=== PATIENT | female | born 1955 | race Caucasian/White ===

== ENCOUNTER 2016-05-06 15:26 | Inpatient (IN) | payer BC, OTHER ==
[~2016-05-06] VITALS: Ht 154.9 cm; Wt 55.1 kg
[2016-05-06] MEDS ORDERED: ONDANSETRON INJ 2 MG/ML 2 ML VIAL IV PRN (16:00)
[2016-05-06 16:10] VITALS: BP 213/113; PULSE 71; TEMP 36.7; O2SAT 98; BMI 21.5
[2016-05-06] MEDS ORDERED: PATIENT'S ALLERGY INFO NEEDS ENTERED SCH (16:30)
[2016-05-06] MEDS ORDERED: CALC667C4 PO (16:34)
[2016-05-06] MEDS ORDERED: MULTTAB58 PO (16:34)
[2016-05-06] MEDS ORDERED: INSDGI SC (16:34)
[2016-05-06] MEDS ORDERED: INSPMPRGR (16:34)
[2016-05-06] MEDS ORDERED: NRV5 PO (16:34)
[2016-05-06] MEDS ORDERED: CHOL20007 PO (16:34)
[2016-05-06] MEDS ORDERED: GLUCAGON FOR INJ 1 MG VIAL SQ PRN (16:45)
[2016-05-06] MEDS ORDERED: GLUCOSE 10 TABS/TUBE PO PRN (16:45)
[2016-05-06] MEDS ORDERED: DEXTROSE 50% 50 ML SYR IV PRN (16:45)
[2016-05-06] MEDS ORDERED: GLUCOSE 40% GEL 15 GM TUBE PO PRN (16:45)
[2016-05-06 17:18] LABS: HEMATOCRIT 38.2 % (37-47); MEAN CELL VOLUME 92.7 fL (80-100); MEAN CORPUSCULAR HEMOGLOBIN 31.1 pg (25-34); MEAN CORPUSCULAR HGB CONC 33.5 g/dl (32-36); MEAN PLATELET VOLUME 9.7 fL (7.4-10.4); PLATELET COUNT 361 K/uL (130-400); RED BLOOD COUNT 4.12 M/uL (4.2-5.4); WHITE BLOOD COUNT 12.44 K/uL (4.8-10.8)
[2016-05-06] MEDS ORDERED: PHARMACY GLYCEMIC MGMT CONSULT PRN (17:27)
[2016-05-06 17:54] LABS: BUN/CREATININE RATIO 3.1 (10-20); CALCIUM 8.6 mg/dl (8.5-10.1); CREATININE 3.5 mg/dl (0.60-1.20); POTASSIUM 3.6 mmol/L (3.5-5.1)
--- NOTE | 2016-05-06 18:02 | History and Physical ---
History & Physical Date & Time of Service: May 06, 2016 at 17:42 Chief Complaint: High Blood Pressure Primary Care Physician: Parris Dyson PA-C History of Present Illness 61 year old female referred for direct admission by Dr. Meade for uncontrolled hypertension. She has ESRD and is on HD. Per Dr. Meade, patient's blood pressures have been running in the 200s systolically. Patient reports she has had high blood pressure for several years. Last year however she was taken off Lisinopril that she had been on several years. BPs started to increase over the past couple of months. Patient has been trialed on lisinopril, atenolol, and amlodipine. She reports that since taking these medicines she has felt poorly and her vision has been blurry at times. She reports the vision is worst in the morning. She also has been having right sided headaches. She denies lightheadedness, dizziness, diaphoresis, or syncopal events. No chest pain or shortness of breath. She denies abdominal pain. She had vomiting a couple of weeks ago which she attributes to a sinus infection she had. She also reports intermittent episodes of diarrhea. She denies fever and chills. Patient continues to make urine; she denies dysuria. At the time of my exam, patient is sitting on the side of the bed, no acute distress. BP is 213/113. Past Medical/Surgical History Medical Problems: (1) DM type 2 (diabetes mellitus, type 2) Status: Chronic (2) ESRD (end stage renal disease) on dialysis Status: Chronic (3) HTN (hypertension) Status: Chronic Social History Smoking Status: Never Smoker Alcohol Use: none Immunizations History of Pneumococcal: Yes Pneumococcal Date: August 24, 2015 Allergies Coded Allergies: Atorvastatin (Verified Adverse Reaction, Mild, GI SYMPTOMS, 05/06/16) Niacin (Verified Adverse Reaction, Mild, GI SYMPTOMS, 05/06/16) Home Medications Scheduled Amlodipine Besylate (Amlodipine Besylate), 5 MG PO DAILY Calcium Acetate (Phoslo 667 Mg), 1 CAP PO WM Cholecalciferol (Vitamin D3), 1 TAB PO DAILY Insulin Glargine (Lantus), 11 UNITS SC QPM Insulin Human Regular (Humulin R), TID Multiple Vitamin (Multivitamin), 1 TAB PO DAILY Review of Systems 10 point review of systems was completed with the pertinent positives and negatives noted per the HPI Physical Exam Vital Signs Date Time Temp Pulse Resp B/P Pulse Ox O2 Delivery O2 Flow Rate FiO2 05/06/16 16:10 36.7 71 17 213/113 98 Room Air General Appearance: no apparent distress Head: normocephalic Eyes: normal inspection, PERRL, EOMI ENT: hearing grossly normal Neck: supple, no JVD Respiratory/Chest: lungs clear, normal breath sounds, no respiratory distress, + pertinent finding (dialysis catheter in place to left chest) Cardiovascular: regular rate, rhythm, no edema, normal peripheral pulses Abdomen/GI: normal bowel sounds, non tender, soft Extremities/Musculoskelatal: normal inspection, no calf tenderness Neurologic/Psych: no motor/sensory deficits, alert, normal mood/affect, oriented x 3 Skin: normal color, warm/dry Diagnostics Laboratory Results Results Past 24 Hours Test 05/06/16 16:05 05/06/16 17:05 Range/Units Bedside Glucose 112 70-90 mg/dl White Blood Count 12.44 4.8-10.8 K/uL Red Blood Count 4.12 4.2-5.4 M/uL Hemoglobin 12.8 12.0-16.0 g/dL Hematocrit 38.2 37-47 % Mean Corpuscular Volume 92.7 80-100 fL Mean Corpuscular Hemoglobin 31.1 25-34 pg Mean Corpuscular Hemoglobin Concent 33.5 32-36 g/dl RDW Standard Deviation 58.2 36.4-46.3 fL RDW Coefficient of Variation 17.2 11.5-14.5 % Platelet Count 361 130-400 K/uL Mean Platelet Volume 9.7 7.4-10.4 fL Impression Assessment and Plan UNCONTROLLED HTN - direct admit to tele, referred by Dr. Meade - due to vision disturbances and headache, will obtain MRI/MRA brain - discussed case with Dr. Meade - will try amlodipine 5mg q12h and Lisinopril 20mg q12h with all doses spaced apart to prevent sudden drop in BP as patient is very symptomatic when BP is lowered - consider secondary causes of HTN - Dr. Meade reports he will order any testing that has not been completed in the past - goal SBP ~ 160-180 - will use PRN PO hydralazine for SBP > 200 - consider anxiety contributing to high BPs, will start BuSpar and consult mental health ESRD ON HD - HD MWF - management as per nephro DVT PROPHYLAXIS - SCDs until BP better controlled DISPO - In my clinical judgment this beneficiary meets acute admission criteria, established by [facility], that includes being hospitalized through two midnights. Advanced Directives Existing Advance Directive: No Existing Living Will: No Existing Power of Deep Fat Fry Cook: No VTE Prophylaxis VTE Risk Assessment Done? Y/N: Yes Risk Level: Moderate
[2016-05-06] MEDS: LISINOPRIL 20 MG TAB PO SCH (18:05)
[2016-05-06] MEDS: CALCIUM ACETATE 667MG GELCAP PO SCH (18:06)
--- NOTE | 2016-05-06 18:44 | NEPHROLOGY CONSULTATION ---
DATE OF CONSULTATION: 05/06/2016 ATTENDING OF RECORD: Dr. Ludwig. REASON FOR CONSULTATION: ESRD and hypertensive urgency. HISTORY OF PRESENT ILLNESS: This is a 61-year-old female who dialyzes at the [facility] Mondays, Wednesdays, and Fridays with ESRD secondary to diabetes, hypertension and NSAID abuse. The patient has been diabetic since 2003. No smoking. Does have a history of scoliosis with chronic back pain and has taken NSAIDs for her back pain in the past. The patient also does have a history of polycythemia vera where she required bloodletting in 2013. The patient has been on atenolol in the past with no issues, was on lisinopril low dose for quite some time; however, recently over the past several months, her blood pressures have worsened with systolics consistently above 200s, currently on atenolol 25 mg a day in the morning, lisinopril 40 mg in the middle of the day and recently started taking Norvasc initially 2.5 mg a day at night and then titrated up to 5 mg a day. The patient was noted to have a temporary vision loss with the atenolol recently, so stopped taking the atenolol and was just taking the lisinopril 40 mg a day and Norvasc 5 mg a day; however, was also noting transient blurry vision with the lisinopril as well and so only took Norvasc 5 mg this morning, took Norvasc 5 mg last night, and nothing throughout yesterday up until last night. Has been having worsening headaches for the past week and went to the Emergency Room in [place] last Friday and was discharged at that time and not admitted. The patient does have significant anxiety as well and has been known to stop blood pressure medications secondary to side effects. PAST MEDICAL HISTORY: Anxiety, hypertension, diabetes, end-stage renal disease, polycythemia. PAST SURGICAL HISTORY: Fistula placement, tunnel dialysis catheter placement, fistula eventually clotted. FAMILY HISTORY: No kidney disease in family. SOCIAL HISTORY: . No smoking, very occasional alcohol, no drugs. REVIEW OF SYSTEMS: No change in weight. No fatigue. Positive headaches. No shortness of breath, no chest pain, no edema, no nausea, vomiting. No diarrhea. Does have chronic back arthritis. No nocturia. No tremors. No seizures. No rash or itching. All other review of systems otherwise negative. HOME MEDICATIONS: Significant for Norvasc 5 mg at night, lisinopril 40 mg a day, atenolol 25 mg in the morning which she is no longer. CURRENT MEDICATIONS: Norvasc 5 mg p.o. q. 12, multivitamin daily, vitamin D daily, Lantus 11 units subQ at night, PhosLo 1 p.o. t.i.d. with meals, lisinopril 20 mg p.o. q. 12 hours, hydralazine 10 mg p.o. p.r.n. PHYSICAL EXAMINATION: VITAL SIGNS: Blood pressure 213/113, temperature 36.7, pulse 71, respiratory rate 17, pulse ox 98% on room air. GENERAL: Awake, alert, oriented x3. EYES: No scleral icterus. ENT: Moist mucous membranes. NECK: Supple. PULMONARY: Clear to auscultation. CARDIAC: Regular rate and rhythm. ABDOMEN: Bowel sounds positive, soft, nontender, nondistended. EXTREMITIES: No significant clubbing, cyanosis or edema. NEUROLOGIC: Nonfocal. DERMATOLOGIC: No rash or ulcers noted. LABORATORIES: Pending. ASSESSMENT AND PLAN: 1. End-stage renal disease: The patient did dialyze today. Mondays, Wednesdays, and Fridays are her normal days. Pt did have her complete dialysis treatment today. Unfortunately, unable to tolerate fluid removal, cramps rather easily, so despite the fact that the patient has elevated blood pressures, unable to lower dry weight to help with the blood pressure. 2. Hypertensive urgency: Blood pressures have consistently been in the 200s now for the past 2 months, and is now having headaches for the past week with blurriness in vision/transient vision loss when we lower the blood pressure. I spoke to the primary admitting who is checking an MRI and if abnormal, will consult neurology, otherwise will have ophthalmology evaluate as an outpatient. Question if the patient's blood pressures are significantly elevated enough to cause papilledema, but now as we lowered the blood pressure may be transiently affecting the vision. The patient is quite sensitive to blood pressure medications and the side effects and patient has been hesitant to be aggressive with blood pressure medications secondary to the lowering of blood pressure causing her to not feel well. Encouraged her to at least get the systolic blood pressures at a goal of 170s-180s and so we will try to space out the lisinopril and the Norvasc and just give 10 mg of p.o. hydralazine as needed for systolic blood pressures greater than 200. We will do a Norvasc 5 b.i.d. for now and lisinopril 20 b.i.d. and try to space out the Norvasc and lisinopril safely apart so that there is no significant drop transiently and we will likely slowly add hydralazine in addition to the lisinopril and Norvasc; however, I do not want to drop the blood pressure too quickly. The patient also does have significant anxiety component as well and we would add BuSpar to help with anxiety symptoms. If we can control her anxiety better, she may be able to tolerate the sensation of lowering the blood pressure, so that we can get the blood pressure into a safe range which should be a systolics 160s-180s. I would also like to check a vascular Dopplers and carotid Dopplers to assess that there is adequate blood flow with the carotids and/or if there is any significant narrowing of blood flow to the kidneys. Also, check an aldosterone-renin ratio. I would expect in setting of lisinopril that the aldosterone level should not necessarily be elevated. If it is elevated, I may consider other secondary causes to why the blood pressure has acutely worsened. I appreciate consultation. WANDER
[2016-05-06 19:03] VITALS: BP 218/102; PULSE 73; TEMP 37; O2SAT 93
[2016-05-06 19:24] VITALS: BP 204/97; PULSE 72; TEMP 36.9; O2SAT 91
[2016-05-06] MEDS: HydrALAZINE 10 MG TAB PO PRN (19:32)
[2016-05-06] MEDS: ACETAMINOPHEN 325 MG TAB PO PRN (19:40)
[2016-05-06 20:53] VITALS: BP 218/93
[2016-05-06] MEDS: INSULIN ASPART 100 UNITS/ML 3 ML PEN SC SCH (21:00)
--- NOTE | 2016-05-06 22:05 | DIAGNOSTIC IMAGING REPORT ---
MR ANGIOGRAM OF THE BRAIN CLINICAL HISTORY: Hypertension. Visual changes. COMPARISON STUDY: MRI of the brain performed concurrently on 05/06/2016. TECHNIQUE: 3-D [id number] MR angiography of the intracranial circulation is performed. 3-D tumble views are created and assessed. IV contrast was not administered for this examination. The examination is modestly degraded by motion artifact. FINDINGS: The [place] of [place] is developmentally complete. The internal carotid arteries are widely patent bilaterally, as are the anterior and middle cerebral arteries. The vertebrobasilar system and posterior cerebral arteries are widely patent. The left vertebral artery is dominant. There is no aneurysm, high-grade stenosis, or focal vessel cutoff seen throughout the intracranial circulation. The brain parenchyma is normal as visualized. IMPRESSION: Unremarkable MR angiogram of the brain noting a mildly motion degraded examination. Electronically signed by: David Escalante M.D. 05/06/2016 10:03 PM Dictated Date/Time: 05/06/2016 10:01 PM
--- NOTE | 2016-05-06 22:15 | DIAGNOSTIC IMAGING REPORT ---
MRI OF THE BRAIN WITHOUT IV CONTRAST CLINICAL HISTORY: Hypertension. Visual changes. COMPARISON STUDY: No priors. TECHNIQUE: MRI of the brain was performed utilizing various T1 and T2-weighted sequences in the axial, sagittal, and coronal planes. IV contrast was not administered for this examination. The examination is incomplete, as the patient declined to finish the study. There are no axial T1 and coronal FLAIR sequences. FINDINGS: Brain parenchyma: There are age-related involutional changes noting mild patchy subcortical and periventricular microtraumatic hepatic disease. There is no hemorrhage or mass effect. There is no restricted diffusion to suggest acute ischemia. Mix-white matter differentiation is preserved. No extra-axial fluid collection is seen. The cerebellar tonsils are normal in configuration. Ventricles, sulci, and cisterns: Prominent secondary to involutional change. Pituitary and sella: Unremarkable. Intracranial vasculature: Normal flow voids are maintained at the skull base. Orbits: The bony orbits are grossly intact. Orbital contents are normal in appearance. Sinuses and mastoids: Clear. Calvarium: Unremarkable. Cervical cord: Partially visualized cervical spinal cord is normal in morphology and signal intensity. IMPRESSION: No acute intracranial abnormality is identified noting an incomplete examination. The patient declined to finish the study. Electronically signed by: David Escalante M.D. 05/06/2016 10:13 PM Dictated Date/Time: 05/06/2016 10:09 PM
[2016-05-06] MEDS: AMLODIPINE BESYLATE 5 MG TAB PO SCH (22:20)
--- NOTE | 2016-05-06 22:23 | Pharmacy Progress Note ---
Glycemic Control Intl Consult Date of Service May 06, 2016. Scope Glycemic Pharmacist consulted by Toyin Fernandez on 05/06/16 for glycemic control and to write orders per [facility] inpatient glycemic control protocol Objective Weight (Kilograms): 51.500 Accuchecks BSG (last 24hrs): Test 05/06/16 16:05 05/06/16 17:05 05/06/16 20:24 Bedside Glucose 112 mg/dl (70-90) 169 mg/dl (70-90) Random Glucose 111 mg/dl (70-99) Laboratory Data (last 24hrs) Test 05/06/16 17:05 Anion Gap 10.0 mmol/L BUN/Creatinine Ratio 3.1 Blood Urea Nitrogen 11 mg/dl Creatinine 3.50 mg/dl Potassium Level 3.6 mmol/L Sodium Level 138 mmol/L White Blood Count 12.44 K/uL Recent Pertinent Medications Outpatient Anti-diabetic Regimen: * Lantus 11 units SQ q PM * Sliding scale insulin The patient is currently receiving: * Basal insulin: Lantus 11 units every 24 hours * Correctional Insulin: NovoLog Correction per scale ACHS Goal Range: Low 120 mg/dL - High 160 mg/dL Correction Factor: 85 mg/dL/unit * Prandial insulin: Per carb ratio of 1 unit per 28 grams CHO consumed Risk Factors for Insulin Resistance: * Diet: AHA/T2DM Assessment & Plan ASSESSMENT: * ADA & AACE recommend a goal blood sugar range 140-180 mg/dl for the majority of critically ill & non-critically ill patients. However, more stringent targets may be selected in individual cases. 05/06/16 * 61 y/o type 2 diabetic admitted with hypertension, ESRD * BSG on admission WNL at 112mg/dL * Home regimen includes basal/bolus - continue on admission * slightly decrease basal dose until more data available. * A1c unavailable at time of consult, however will interpret with caution since ESRD can cause variation in value PLAN FOR INPATIENT GLYCEMIC CONTROL: * Lantus 8 units SQ q PM * NovoLog AC and HS * Correction factor: 50mg/dL/unit * Carb ratio: forgo at this time as the patient does not use as an o/p * Goal range: 140-180mg/dL per ADA recommendations * A1c - ordered for 05/07/16 by provider * Please note that the plan above was derived based on current level of insulin resistance and hospital stress. These recommendations are appropriate for inpatient admission only. Plan of care upon discharge will need to be reassessed to avoid potential outpatient hypo/hyperglycemia. Thank you.
--- NOTE | 2016-05-06 22:35 | DIAGNOSTIC IMAGING REPORT ---
ULTRASOUND OF THE CAROTID ARTERIES CLINICAL HISTORY: Amaurosis fugax. COMPARISON STUDY: No priors. TECHNIQUE: Real-time, grayscale, and color Doppler sonography of the carotid arteries is performed. Images are reviewed in the transverse and longitudinal planes. FINDINGS: Blood pressures were not assessed due to limb restrictions. The carotid arteries are patent bilaterally and demonstrate antegrade flow. There is mild to moderate echogenic shadowing atherosclerotic plaque seen in the carotid bulbs bilaterally, right greater than left. Normal doppler arterial waveforms are seen throughout. Velocity measurements are listed below. Common carotid peak systolic velocity (cm/sec): RIGHT: 51 LEFT: 69 ICA proximal peak systolic velocity (cm/sec): RIGHT: 70 LEFT: 76 ICA mid peak systolic velocity (cm/sec): RIGHT: 43 LEFT: 56 ICA distal peak systolic velocity (cm/sec): RIGHT: 43 LEFT: 87 ICA/CC peak systolic ratio: RIGHT: 1.4 LEFT: 1.3 Antegrade flow was shown in the vertebral arteries. The external carotid arteries are patent. IMPRESSION: 1. There is no sonographic evidence of hemodynamically significant stenosis in the right or left carotid arterial system. 2. Antegrade flow is shown in the vertebral arteries. Electronically signed by: David Escalante M.D. 05/06/2016 10:33 PM Dictated Date/Time: 05/06/2016 10:31 PM
[2016-05-06] MEDS: INSULIN GLARGINE SOLOSTAR 100 UNITS/ML 3 ML PEN SC SCH (22:47)
[2016-05-07] VITALS (9 sets, daily range): BP systolic 173–226; BP diastolic 75–112; PULSE 72–80; TEMP 36.8–37.2; O2SAT 91–99; Ht 154.9 cm; Wt 55.1 kg
[2016-05-07] MEDS: HydrALAZINE 10 MG TAB PO PRN (03:36)
[2016-05-07] MEDS: LISINOPRIL 20 MG TAB PO SCH ×2 (05:54→17:05)
--- NOTE | 2016-05-07 06:30 | Nephrology Progress Note ---
Nephrology Progress Note Date of Service: May 07, 2016. Subjective 61 yo female with esrd and hypertensive urgency with systolics in the 200s consistently for the past two months. have been trying to adjust outpt meds but pt was having drug intolerances to the beta blockers-causing temporary blindness. pt this morning has upset stomach but feels she is just hungry. had a headache which improved with tylenol. Objective Date Time Temp Pulse Resp B/P Pulse Ox O2 Delivery O2 Flow Rate FiO2 05/07/16 04:00 Room Air 05/07/16 03:39 37.1 72 18 226/110 93 Room Air 05/07/16 00:06 36.9 76 19 216/112 99 Room Air 05/06/16 23:59 Room Air 05/06/16 20:53 218/93 05/06/16 20:00 Room Air 05/06/16 19:24 36.9 72 18 204/97 91 Room Air 05/06/16 19:03 37.0 73 18 218/102 93 05/06/16 16:10 36.7 71 17 213/113 98 Room Air Physical Exam: General-aaox3 Eyes-no scleral icterus ENT-mmm Neck-supple Lungs-cta Heart-rrr Abdomen-bs+ s/nt/nd Extremities-no c/c/e Neuro-nonfocal Current Inpatient Medications Medications (Trade) Dose Ordered Sig/Lauren Route Start Time Stop Time Status Last Admin Dose Admin Acetaminophen (Tylenol Tab) 650 mg Q4H PRN PO 05/06/16 16:00 06/05/16 15:59 05/06/16 19:40 650 MG Ondansetron HCl (Zofran Inj) 4 mg Q6H PRN IV 05/06/16 16:00 06/05/16 15:59 Lisinopril (Zestril Tab) 20 mg Q12@0600,1800 PO 05/06/16 18:00 06/05/16 17:59 05/07/16 05:54 20 MG Amlodipine Besylate (Norvasc Tab) 5 mg Q12H PO 05/06/16 22:00 06/05/16 21:59 05/06/16 22:20 5 MG Hydralazine HCl (Apresoline Tab) 10 mg Q6H PRN PO 05/06/16 16:30 06/05/16 16:29 05/07/16 03:36 10 MG Calcium Acetate (Phoslo Cap) 667 mg TIDM PO 05/06/16 16:45 06/05/16 16:44 05/06/16 18:06 667 MG Insulin Glargine (Lantus Solostar Pen) 8 unit QPM SC 05/06/16 21:00 06/05/16 20:59 05/06/16 22:47 8 UNIT Multivitamins (Multivitamin Tab) 1 tab DAILY PO 05/07/16 09:00 06/06/16 08:59 Cholecalciferol (Vitamin D Tab) 2,000 inter.unit DAILY PO 05/07/16 09:00 06/06/16 08:59 Insulin Aspart (novoLOG ASPART) SLIDING SCALE If C... ACHS SC 05/06/16 21:00 06/05/16 20:59 Glucose (Glucose 40% Gel) 15-30 GRAMS 15 GRAMS... UD PRN PO 05/06/16 16:45 06/05/16 16:44 Glucose (Glucose Chew Tab) 4-8 Tablets 4 Tabl... UD PRN PO 05/06/16 16:45 06/05/16 16:44 Dextrose (Dextrose 50% 50ML Syringe) 25-50ML OF 50% DW IV FOR... UD PRN IV 05/06/16 16:45 06/05/16 16:44 Glucagon (Glucagon Inj) 1 mg UD PRN SQ 05/06/16 16:45 06/05/16 16:44 Miscellaneous Information (Consult Glycemic Management Pharmacy) 1 ea UD PRN N/A 05/06/16 17:27 06/05/16 17:26 Buspirone HCl (Buspar Tab) 5 mg TID PO 05/06/16 17:00 06/05/16 16:59 05/06/16 22:20 5 MG Last 24 Hours Test 05/06/16 16:05 05/06/16 17:05 05/06/16 20:24 05/07/16 04:44 Bedside Glucose 112 mg/dl 169 mg/dl White Blood Count 12.44 K/uL Red Blood Count 4.12 M/uL Hemoglobin 12.8 g/dL Hematocrit 38.2 % Mean Corpuscular Volume 92.7 fL Mean Corpuscular Hemoglobin 31.1 pg Mean Corpuscular Hemoglobin Concent 33.5 g/dl RDW Standard Deviation 58.2 fL RDW Coefficient of Variation 17.2 % Platelet Count 361 K/uL Mean Platelet Volume 9.7 fL Sodium Level 138 mmol/L Potassium Level 3.6 mmol/L Chloride Level 100 mmol/L Carbon Dioxide Level 28 mmol/L Anion Gap 10.0 mmol/L Blood Urea Nitrogen 11 mg/dl Creatinine 3.50 mg/dl Est Creatinine Clear Calc Drug Dose 12.7 ml/min Estimated GFR () 15.5 Estimated GFR (Non- 13.4 BUN/Creatinine Ratio 3.1 Random Glucose 111 mg/dl Calcium Level 8.6 mg/dl Assessment & Plan hypertension-goal systolic bp in the 160 to 180. has continued in the 200s since admission. have been trying to slowly bring it down since pt does not tolerate aggressive lowering. currently on lisinopril 20 bid and norvasc 5 bid. did get dose of lisinopril 10 po for elevated bp. would like to add hydralazine 25 mg po tid to the regimen and increase the hydralazine to 10mg iv q6hrs prn systolic bp above 200. have asked cardiology for help and guidance in this complicated patient. carotid dopplers are normal. mri/mra is good although incomplete study. had renal vascular dopplers this morning-results pending. ordered prasanna/renin to complete the workup. will check tsh as well. psych-pt also with anxiety component to her bp. have consulted psych and added buspar 5 po tid. perhaps if anxiety levels improve, she may be able to tolerate bp meds better. ESRD-does not tolerate aggressive uf-cramps. so unable to help lower bp with lowering dry weight.
[2016-05-07] MEDS: INSULIN ASPART 100 UNITS/ML 3 ML PEN SC SCH ×4 (07:00→20:44)
[2016-05-07 07:06] LABS: BASO % 0.3 %; BASO ABS # 0.03 K/uL (0-0.2); COMPLETE YES; EOS % 3.1 %; HEMATOCRIT 38.3 % (37-47); IG% 0.3 %; LYMPH % 9.3 %; LYMPH ABS # 1.07 K/uL (1.2-3.4); MEAN CELL VOLUME 92.5 fL (80-100); MEAN CORPUSCULAR HEMOGLOBIN 30.4 pg (25-34); MEAN CORPUSCULAR HGB CONC 32.9 g/dl (32-36); MEAN PLATELET VOLUME 9.9 fL (7.4-10.4); MONO % 5.1 %; NEUT % 81.9 %; PLATELET COUNT 354 K/uL (130-400); RED BLOOD COUNT 4.14 M/uL (4.2-5.4); WHITE BLOOD COUNT 11.53 K/uL (4.8-10.8)
--- NOTE | 2016-05-07 07:17 | DIAGNOSTIC IMAGING REPORT ---
DUPLEX RENAL ARTERY ultrasound CLINICAL HISTORY: check for renal artery stenosis. Hypertension. COMPARISON STUDY: None. FINDINGS: Both kidneys are echogenic and atrophic with the right measuring 8.8 cm and the left measuring 9.0 cm. Mild fullness within the left renal pelvis without maría hydronephrosis. No right-sided hydronephrosis. There appear to be 2 right renal arteries. The peak systolic velocity of artery 1 measures 75 cm second and the peak systolic velocity of the second artery measures 119 cm/s. The peak systolic velocity within the left renal artery was 48 cm/s. Resistive indices of the bilateral arcuate arteries were less than 0.72. Bilateral renal veins are patent. The spleen is enlarged measuring 15.5 cm in length. There are bilateral pleural effusions. IMPRESSION: 1. No evidence for renal artery stenosis. 2. Splenomegaly. 3. Bilateral pleural effusions. 4. Echogenic and atrophic kidneys. 5. Mild fullness within the left renal collecting system without maría hydronephrosis. Electronically signed by: Jefferson Flores M.D. 05/07/2016 7:15 AM Dictated Date/Time: 05/07/2016 7:11 AM
[2016-05-07] MEDS: HydrALAZINE HCL 20 MG/ML VIAL IV. PRN (07:37)
[2016-05-07 07:47] LABS: BUN/CREATININE RATIO 3.7 (10-20); CALCIUM 9.2 mg/dl (8.5-10.1); CREATININE 4.9 mg/dl (0.60-1.20); POTASSIUM 3.7 mmol/L (3.5-5.1)
[2016-05-07] MEDS: CALCIUM ACETATE 667MG GELCAP PO SCH ×3 (08:28→17:04)
[2016-05-07] MEDS: MULTIVITAMIN TAB PO SCH (08:29)
[2016-05-07] MEDS: CHOLECALCIFEROL 1000 INTER.UNIT TAB PO SCH (08:29)
[2016-05-07 09:52] LABS: ESTIMATED AVERAGE GLUCOSE 85 mg/dl; HA1C FLAG Normal (Normal)
[2016-05-07] MEDS: AMLODIPINE BESYLATE 5 MG TAB PO SCH ×2 (10:51→22:25)
--- NOTE | 2016-05-07 13:13 | Clinical Documentation Query ---
[facility]ICAL DOC[facility] QUERY Patient is a 61 year old female admitted with "uncontrolled hypertension", not otherwise specified. She presented with SBP > 200, visual changes, right sided headaches. She is being treated with oral antihypertensives, anxiolytics, and has been seen in consultation by nephrology. Please clarify as clinically appropriate. Thank you. In your clinical opinion is this patient being managed for: ( X ) Hypertensive urgency ( ) Other explanation of clinical findings (Please Explain) ( ) Unable to determine (Please Define) ( ) Need to Discuss ( ) Not Agree The medical record reflects the following clinical findings, treatment, and risk factors. Clinical Indicators: As above Treatment:She is being treated with oral antihypertensives, anxiolytics, and has been seen in consultation by nephrology. Risk Factors: DM, non-compliance Please clarify and document your clinical opinion in the progress notes and discharge summary. Terms such as "probable", "suspected", "likely", "questionable", "possible", or "still to be ruled out" are acceptable. IF IN AGREEMENT, YOU MUST DOCUMENT ABOVE DIAGNOSTIC STATEMENT IN DAILY PROGRESS NOTES AND DISCHARGE SUMMARY. This document is not part of the patient's record. Thank You, Marcel Ocampo, RANDALL [phone]
--- NOTE | 2016-05-07 14:31 | CONSULTATION REPORT ---
DATE OF CONSULTATION: 05/07/2016 DATE OF CONSULTATION: 05/07/2016. IDENTIFYING DATA: Lesly Allred is a 61-year-old woman from the [place] area, admitted to the medical floor with hypertensive urgency. We are consulted to evaluate anxiety. Information is gathered from the patient and the electronic medical record and determined to be reliable. CHIEF COMPLAINT: "I said that I did not want to go on any medicines." HISTORY OF PRESENT ILLNESS: Lesly Allred is a 61-year-old woman with end-stage renal disease treated by Dr. Meade, uncontrolled hypertension and diabetes, has been struggling to get her hypertension under control for the last several months. She has been on multiple agents but experienced side effects and so is admitted for additional medication support. We have been consulted to evaluate anxiety. The patient admits that she does have anxiety regarding her medical issues. She describes that the nurses at dialysis refer to her shunt as her lifeline and when her shunt failed at some point in the past she became acutely anxious. She presses our conversation by saying she told the nurse earlier and the doctor that she did not want any medications for her anxiety. I then allow her to talk a bit about her medical conditions and her home circumstances. She indicates that her anxiety is better when she is in the hospital because she feels that she has support. Her appetite has been down. Her energy is low. She indicates that her anxiety could be triggered by anything and feels that there is no one specific trigger. Her mood is usually impaired when she does not feel well. She gets about 5 hours of broken sleep per night. She denies current panic attacks. She denies that she was an anxious person when she was in her teens, 20s and 30s. CURRENT MEDICATIONS: 1. Multivite 1 tab daily. 2. Vitamin D supplementation 2000 international units daily. 3. Apresoline 25 mg t.i.d. 4. Hydralazine 10 mg q. 6 p.r.n. 5. Norvasc 5 mg q. 12 hours. 6. Lantus insulin 8 units q.p.m. 7. NovoLog insulin sliding scale. 8. Lisinopril 20 mg q. 12 hours. 9. BuSpar 5 mg t.i.d. 10. PhosLo cap 667 mg t.i.d. with meals. PAST PSYCHIATRIC HISTORY: The patient denies ever having been seen by a mental health professional. She has never been hospitalized for mental health reasons nor has she ever made a suicide attempt. PRIOR MEDICATION TRIALS: None. ACCESS TO GUNS: She is in possession of her father's gun, but does not have ammunition. ALLERGIES: 1. NIACIN -- GI SYMPTOMS. 2. ATORVASTATIN -- GI SYMPTOMS. PAST MEDICAL HISTORY: 1. End-stage renal disease on dialysis. 2. Hypertension. 3. Diabetes. 4. No history for head injury or seizure. 5. Tobacco use -- nonsmoker. FAMILY HISTORY: Positive for possible depression in mother, brother who is an alcoholic. She denies family history for suicide. SUBSTANCE ABUSE HISTORY: The patient denies the use of alcohol, organic substances, inhalants, abuse of over the counter medicines or prescription medicines. PERSONAL HISTORY: The patient lives in the [place] area. She has been to her for 42 years. She is unemployed. She has 2 children. There are no legal concerns and psychological trauma history is denied. MENTAL STATUS EXAMINATION: A 55-year-old woman dressed in a hospital gown, lying in her 2nd floor bed. She is alert and cooperative with the interview. She has poor dentition. Eye contact is good. Motor behavior is significant for some restlessness. Speech is rapid, but not pressured, of normal volume and tone. Affect is anxious. Mood is anxious. Thought process is organized and goal directed, although overly inclusive in her descriptions. She denies thought disorder in the form of hallucinations or delusions. She denies thoughts, plans, or intent to harm herself or anybody else. Today, she is fully oriented. Memory functions are intact. Fund of knowledge is intact. Intelligence is estimated to be average. Insight and judgment are limited. VITAL SIGNS: Temp 36.8, pulse 76, respirations 18, blood pressure 191/84, pulse ox 96% on room air. LABORATORIES: 1. CBC with diff -- notable for WBCs 11.53, RBCs 4.14. 2. Chem profile -- notable for anion gap 12.0, creatinine 4.90, BUN and creatinine ratio of 3.7, glucoses 131 to 160. IMAGIN. BRAIN MRI -- no acute intracranial abnormality, but it is an incomplete exam. 2. RENAL ULTRASOUND -- no evidence for renal artery stenosis. Splenomegaly. Bilateral pleural effusions. Echogenic and atrophic kidneys. Mild fullness within the left renal collecting system without maría hydronephrosis. 3. CAROTID ARTERY ULTRASOUND -- no sonographic evidence of hemodynamically significant stenosis in the right or left carotid arterial system. REVIEW OF SYSTEMS: Positive for complaints of anxiety, fatigue, headache. PHYSICAL EXAMINATION: As per Dr. Meade. IMPRESSION: A 61-year-old woman admitted to hospital with hypertensive urgency in the context of end-stage renal disease on chronic dialysis. We are consulted to evaluate anxiety. Although the patient acknowledges she is anxious in the context of her multiple medical problems, she immediately refuses to consider medications. I spent some time with her, trying to establish report, and taking the time to explain the benefits of an SSRI to mood, anxiety and overall medical outcomes. I have asked her to think about this and reconsider and if she has further questions or would like to start a medication, I would be happy to return. BuSpar has been started here in the hospital which will have some serotonergic activity which will help anxiety and mood, but benefit likely not as robust as using an SSRI. DIAGNOSES: 1. 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 2. Medical conditions as above. PLAN: Has been reviewed with Dr. Leslie Reyes. 1. Anxiety. -- Continue BuSpar 5 mg t.i.d. -- Recommend starting an SSRI, although the patient declined at this time. I have asked her to think about it and have me paged to return if she would like to reconsider. We thank you for allowing us to participate in this woman's care.
--- NOTE | 2016-05-07 14:56 | CARDIOLOGY CONSULTATION ---
DATE OF CONSULTATION: 05/07/2016 REFERRING PHYSICIAN: Isak Queen MD REASON FOR CONSULTATION: Hypertensive urgency. HISTORY OF PRESENT ILLNESS: Ms. Allred is a 61-year-old female who was referred for direct admission by nephrology due to uncontrolled hypertension/hypertensive urgency. She is a dialysis patient, 3 days per week. The patient reports elevated blood pressures dating back to February. Admits to not taking any blood pressure medicines from approximately August of 2015 through February. She has had issues with intolerance to multiple medications in the past. Most recently, she has been treated with lisinopril, atenolol, and amlodipine. Admits to feeling poorly and intermittent blurry vision with these medications. She also notes dizziness when she bends forward and then stands up quickly. The previous resting 2D transthoracic echo was performed in October demonstrating normal left ventricular function with normal wall thickness. The patient is currently treated with lisinopril and amlodipine since admission. Dr. Meade added hydralazine 25 mg 3 times daily. She has tolerated 2 doses thus far today. She received a dose of IV hydralazine this morning, which caused nausea. She denies any lightheadedness, dizziness, syncope, near syncope, shortness of breath, or chest discomfort currently. On a daily basis, she is active around her home. Notes mild dyspnea when she gets to the top of her stairs. Denies fevers, chills, or sick contacts. A renal artery duplex was performed revealing no evidence of renal artery stenosis. MRI and MRA also unremarkable. The patient offers no complaints at this time. Her blood pressure is mildly improved with current medication interventions. REVIEW OF SYSTEMS: The pertinent positives noted above, a comprehensive 10-system review is otherwise negative. PAST MEDICAL HISTORY: 1. Diabetes type 2. 2. End-stage renal disease. 3. Uncontrolled hypertension. 4. Dyslipidemia. PAST SURGICAL HISTORY: Right-sided AV fistula placement. SOCIAL HISTORY: She is a lifelong nonsmoker. Denies alcohol or illicit drug use. FAMILY HISTORY: Negative for premature coronary artery disease or sudden cardiac . ALLERGIES: ATORVASTATIN AND NIACIN. HOME MEDICATIONS: 1. Amlodipine 5 mg daily. 2. PhosLo 667 mg with meals. 3. Vitamin D daily. 4. Lantus 11 units subcutaneous at bedtime. 5. Regular insulin t.i.d. 6. Multivitamin daily. ECG ON ADMISSION: Sinus rhythm, cannot exclude septal infarct, left ventricular hypertrophy. LABORATORY DATA: Sodium 139, potassium 3.7, chloride 100, CO2 of 27, BUN 18, and creatinine is 4.90. White blood cell count 11.53, hemoglobin is 12.6, and platelet count is 354. Carotid duplex, no sonographic evidence of a hemodynamically significant stenosis. Telemetry demonstrates sinus rhythm, no dysrhythmia. PHYSICAL EXAMINATION: VITAL SIGNS: Temperature is 36.3 degrees centigrade, pulse 76 beats per minute and regular, respiratory rate 18 breaths per minute, blood pressure currently 191/84, and SaO2 is 96% on room air. GENERAL: NAD, poor dentition, awake, alert and oriented x3. HEENT: No scleral icterus. Conjunctivae are pink. NECK: No JVD or HJR. No carotid bruit. HEART: Regular with a normal S1 and S2. There is no murmur, rub, or gallop. LUNGS: Clear. There are no rales, rhonchi or wheeze. ABDOMEN: Soft and nontender. There is no rebound or guarding. Normal bowel sounds. EXTREMITIES: Warm and dry. There is no clubbing, cyanosis, or edema. Right upper extremity fistula noted. There is a left subclavicular tunnel catheter noted without erythema or drainage. NEUROLOGIC: Demonstrates no focal deficit. FINAL IMPRESSION: 1. Hypertensive urgency -- blood pressure improved with the addition of hydralazine. 2. History of longstanding hypertension with intermittent noncompliance as well as uncontrolled anxiety contributing to elevated blood pressure. 3. Diabetes type 2. 4. Dyslipidemia -- nonmedicated with documented ALLERGY TO ATORVASTATIN. 5. Previous resting 2D transthoracic echo read as no evidence of left ventricular hypertrophy; however, there is possible evidence of left ventricular hypertrophy per repeat ECG performed on admission. 6. End-stage renal disease on hemodialysis on Friday, Friday, and Friday. PLAN AND RECOMMENDATIONS: I had a long discussion with the patient regarding her uncontrolled hypertension. A secondary workup has been initiated by nephrology. Her renal artery duplex is unremarkable. Her serum aldosterone level and Renin/aldosterone ratio are pending. I suspect at least a portion of her elevated pressures are due to noncompliance in the past as well as her multiple issues with drug intolerance. She is currently tolerating low dose hydralazine x2 doses in addition to amlodipine and lisinopril. Agree to a slow titration of medication with a gradual decline in systolic blood pressure to goal of 160 if possible during hospitalization. We could become more aggressive in the future as the patient acclimates to these lower readings. Consideration for nonselective beta-gladis as next agent pending review of resting 2D transthoracic echo. I will continue to follow along with you during the hospitalization. Thank you for allowing me to take part in the care of your patient.
--- NOTE | 2016-05-07 16:23 | ECHOCARDIOGRAM REPORT ---
*NOTICE TO RECEIVING CONSTITUTION PARTY AGENCY This information is strictly Confidential and protected under [place] law. [place] law prohibits you from making any further disclosure of this information unless further disclosure is expressly permitted by the written consent of the person to whom it pertains or is authorized by law. A general authorization for the release of medical or other information is not sufficient for this purpose. Hospital accepts no responsibility if the information is made available to any other person, INCLUDING THE PATIENT. Interpretation Summary * Name: LESLY TREVIÑO Study Date: 05/07/2016 02:50 PM BP: 191/84 mmHg * Patient Location: C.2T\S\E221\S\1 HR: 76 * : 1955 (M/d/yyyy) Gender: Female Height: 61 in * Age: 61 yrs Ethnicity: CA Weight: 117 lb * Ordering Physician: Trey Hernandez * Referring Physician: Johanna Meade I. * Performed By: Dedra Solomon RDCS * * Reason For Study: MALIGNANT HTN * BSA: 1.5 m2 * History: MALIGNANT HTN * The study was technically adequate. * There is no comparison study available. * -- Conclusions -- * Left ventricular systolic function is normal. * Ejection Fraction = 60-65%. * There is severe concentric left ventricular hypertrophy. * The left atrium is mildly dilated. * Diastolic dysfunction, Grade II (pseudonormalization pattern). * There is mild tricuspid regurgitation. * Estimated systolic PAP is 54mmHg. * There is mild mitral regurgitation. * Small pericardial effusion. * There are no echocardiographic indications of cardiac tamponade. Procedure Details * A complete two-dimensional transthoracic echocardiogram was performed (2D, M-mode, Doppler and color flow Doppler). Left Ventricle * The left ventricle is normal in size. * There is no thrombus. * There is severe concentric left ventricular hypertrophy. * Ejection Fraction = 60-65%. * Left ventricular systolic function is normal. * The left ventricular wall motion is normal. Right Ventricle * The right ventricle is normal size. * The right ventricular systolic function is normal as assessed by tricuspid annular plane systolic excursion (TAPSE) (normal >1.5 cm). Atria * The left atrium is mildly dilated. * Right atrial size is normal. * There is no evidence of atrial septal defect, but resolution does not allow assessment for a patent foramen ovale. Mitral Valve * The mitral valve is normal. * There is mild mitral annular calcification. * There is no mitral valve stenosis. * There is mild mitral regurgitation. Tricuspid Valve * The tricuspid valve is normal. * There is no tricuspid stenosis. * There is mild tricuspid regurgitation. * Estimated systolic PAP is 54mmHg. Aortic Valve * The aortic valve is trileaflet. * Aortic stenosis is absent. * There is no significant aortic regurgitation. Pulmonic Valve * The pulmonary valve is inadequately visualized, but the Doppler data is adequate for interpretation. * There is no pulmonic valvular stenosis. * Trace pulmonic valvular regurgitation. Great Vessels * The aortic root is normal size. Pericardium/Pleural * Small pericardial effusion. * There are no echocardiographic indications of cardiac tamponade. Great Vessels * Normal inferior vena cava diameter and respiratory variation suggests normal central venous pressure. Left Ventricular Diastolic Function * Diastolic dysfunction, Grade II (pseudonormalization pattern). MMode 2D Measurements and Calculations IVSd 1.6 cm IVSs 1.8 cm LVIDd 3.6 cm LVIDs 2.4 cm LVPWd 1.8 cm LVPWs 1.9 cm IVS/LVPW 0.92 FS 33.7 % EDV(Teich) 54.3 ml ESV(Teich) 19.8 ml EF(Teich) 63.5 % EDV(cubed) 46.5 ml ESV(cubed) 13.5 ml EF(cubed) 70.9 % % IVS thick 8.1 % % LVPW thick 5.4 % LV mass(C)d 250.5 grams LV mass(C)dI 166.6 grams/m\S\2 LV mass(C)s 173.0 grams LV mass(C)sI 115.0 grams/m\S\2 SV(Teich) 34.5 ml SI(Teich) 22.9 ml/m\S\2 SV(cubed) 33.0 ml SI(cubed) 21.9 ml/m\S\2 Ao root diam 2.5 cm Ao root area 5.0 cm\S\2 LA dimension 3.6 cm LA/Ao 1.4 LVAd ap4 25.7 cm\S\2 LVLd ap4 8.5 cm EDV(MOD-sp4) 62.2 ml EDV(sp4-el) 65.9 ml LVAs ap4 14.9 cm\S\2 LVLs ap4 7.2 cm ESV(MOD-sp4) 27.2 ml ESV(sp4-el) 26.2 ml EF(MOD-sp4) 56.2 % EF(sp4-el) 60.3 % LVAd ap2 26.1 cm\S\2 LVLd ap2 8.4 cm EDV(MOD-sp2) 70.8 ml EDV(sp2-el) 69.1 ml LVAs ap2 16.2 cm\S\2 LVLs ap2 7.7 cm ESV(MOD-sp2) 30.8 ml ESV(sp2-el) 29.2 ml EF(MOD-sp2) 56.5 % EF(sp2-el) 57.8 % LVLd %diff -1.68 % EDV(MOD-bp) 66.7 ml LVLs %diff 5.7 % ESV(MOD-bp) 29.2 ml EF(MOD-bp) 56.3 % SV(MOD-sp4) 34.9 ml SI(MOD-sp4) 23.2 ml/m\S\2 SV(MOD-sp2) 40.0 ml SI(MOD-sp2) 26.6 ml/m\S\2 SV(MOD-bp) 37.6 ml SI(MOD-bp) 25.0 ml/m\S\2 SV(sp4-el) 39.7 ml SI(sp4-el) 26.4 ml/m\S\2 SV(sp2-el) 40.0 ml SI(sp2-el) 26.6 ml/m\S\2 Doppler Measurements and Calculations MV E max mavis 139.4 cm/sec MV A max mavis 109.2 cm/sec MV E/A 1.3 MV dec time 0.18 sec Ao V2 max 123.1 cm/sec Ao max PG 6.1 mmHg Ao max PG (full) 1.3 mmHg LV V1 max PG 4.7 mmHg LV V1 max 108.6 cm/sec TR max mavis 317.9 cm/sec
--- NOTE | 2016-05-07 19:03 | Progress Note ---
Medicine Progress Note Date & Time of Visit: May 07, 2016 at 18:56. Subjective Patient seen and examined. Denies headache, chest pain, SOB. Objective Last 8 Hrs Date Time Temp Pulse Resp B/P Pulse Ox O2 Delivery O2 Flow Rate FiO2 05/07/16 16:00 Room Air 05/07/16 15:36 37.0 80 16 186/99 91 Room Air 05/07/16 12:00 Room Air 05/07/16 11:09 36.8 76 18 191/84 96 Room Air Physical Exam: General-awake; alert; NAD Eyes-EOMI; no scleral icterus Neck-no stridor; trachea midline Lungs-CTA bilaterally; no wheezes/crackles Heart-RRR; no m/r/g Abdomen-soft; NTND; nBS Extremities-no deformity; no c/c/e Neuro-no gross focal deficits Laboratory Results: Last 24 Hours Test 05/06/16 20:24 05/07/16 06:33 05/07/16 06:44 05/07/16 11:15 Bedside Glucose 169 mg/dl 131 mg/dl 160 mg/dl White Blood Count 11.53 K/uL Red Blood Count 4.14 M/uL Hemoglobin 12.6 g/dL Hematocrit 38.3 % Mean Corpuscular Volume 92.5 fL Mean Corpuscular Hemoglobin 30.4 pg Mean Corpuscular Hemoglobin Concent 32.9 g/dl Platelet Count 354 K/uL Mean Platelet Volume 9.9 fL Neutrophils (%) (Auto) 81.9 % Lymphocytes (%) (Auto) 9.3 % Monocytes (%) (Auto) 5.1 % Eosinophils (%) (Auto) 3.1 % Basophils (%) (Auto) 0.3 % Neutrophils # (Auto) 9.45 K/uL Lymphocytes # (Auto) 1.07 K/uL Monocytes # (Auto) 0.59 K/uL Eosinophils # (Auto) 0.36 K/uL Basophils # (Auto) 0.03 K/uL RDW Standard Deviation 57.7 fL RDW Coefficient of Variation 17.2 % Immature Granulocyte % (Auto) 0.3 % Immature Granulocyte # (Auto) 0.03 K/uL Sodium Level 139 mmol/L Potassium Level 3.7 mmol/L Chloride Level 100 mmol/L Carbon Dioxide Level 27 mmol/L Anion Gap 12.0 mmol/L Blood Urea Nitrogen 18 mg/dl Creatinine 4.90 mg/dl Est Creatinine Clear Calc Drug Dose 9.1 ml/min Estimated GFR () 10.3 Estimated GFR (Non- 8.9 BUN/Creatinine Ratio 3.7 Random Glucose 135 mg/dl Estimated Average Glucose 85 mg/dl Hemoglobin A1c 4.6 % Calcium Level 9.2 mg/dl Test 05/07/16 16:10 Bedside Glucose 124 mg/dl Assessment & Plan HYPERTENSIVE URGENCY - MRI/MRA brain unremarkable but incomplete - Cardiology consulted - continue hydralazine, lisinopril, amlodipine ESRD ON HD - HD MWF - Nephrology consulted ANXIETY - Psychiatry consulted - buspirone started - patient declined SSRI DVT PROPHYLAXIS - SCDs Consultants: Cardiology Nephrology Psychiatry Procedures: MRI brain No acute intracranial abnormality is identified noting an incomplete examination. The patient declined to finish the study. MRA head Unremarkable MR angiogram of the brain noting a mildly motion degraded examination. Renal ultrasound 1. No evidence for renal artery stenosis. 2. Splenomegaly. 3. Bilateral pleural effusions. 4. Echogenic and atrophic kidneys. 5. Mild fullness within the left renal collecting system without maría hydronephrosis. Carotid artery ultrasound 1. There is no sonographic evidence of hemodynamically significant stenosis in the right or left carotid arterial system. 2. Antegrade flow is shown in the vertebral arteries. Current Inpatient Medications: Current Inpatient Medications Medications (Trade) Dose Ordered Sig/Lauren Route Start Time Stop Time Status Last Admin Dose Admin Acetaminophen (Tylenol Tab) 650 mg Q4H PRN PO 05/06/16 16:00 06/05/16 15:59 05/06/16 19:40 650 MG Ondansetron HCl (Zofran Inj) 4 mg Q6H PRN IV 05/06/16 16:00 06/05/16 15:59 05/07/16 08:28 4 MG Lisinopril (Zestril Tab) 20 mg Q12@0600,1800 PO 05/06/16 18:00 06/05/16 17:59 05/07/16 17:05 20 MG Amlodipine Besylate (Norvasc Tab) 5 mg Q12H PO 05/06/16 22:00 06/05/16 21:59 05/07/16 10:51 5 MG Calcium Acetate (Phoslo Cap) 667 mg TIDM PO 05/06/16 16:45 06/05/16 16:44 05/07/16 17:04 667 MG Insulin Glargine (Lantus Solostar Pen) 8 unit QPM SC 05/06/16 21:00 06/05/16 20:59 05/06/16 22:47 8 UNIT Multivitamins (Multivitamin Tab) 1 tab DAILY PO 05/07/16 09:00 06/06/16 08:59 05/07/16 08:29 1 TAB Cholecalciferol (Vitamin D Tab) 2,000 inter.unit DAILY PO 05/07/16 09:00 06/06/16 08:59 05/07/16 08:29 2,000 INTER.UNIT Insulin Aspart (novoLOG ASPART) SLIDING SCALE If C... ACHS SC 05/06/16 21:00 06/05/16 20:59 Glucose (Glucose 40% Gel) 15-30 GRAMS 15 GRAMS... UD PRN PO 05/06/16 16:45 06/05/16 16:44 Glucose (Glucose Chew Tab) 4-8 Tablets 4 Tabl... UD PRN PO 05/06/16 16:45 06/05/16 16:44 Dextrose (Dextrose 50% 50ML Syringe) 25-50ML OF 50% DW IV FOR... UD PRN IV 05/06/16 16:45 06/05/16 16:44 Glucagon (Glucagon Inj) 1 mg UD PRN SQ 05/06/16 16:45 06/05/16 16:44 Miscellaneous Information (Consult Glycemic Management Pharmacy) 1 ea UD PRN N/A 05/06/16 17:27 06/05/16 17:26 Buspirone HCl (Buspar Tab) 5 mg TID PO 05/06/16 17:00 06/05/16 16:59 05/07/16 15:10 5 MG Hydralazine HCl (Apresoline Tab) 25 mg TID PO 05/07/16 09:00 06/06/16 08:59 05/07/16 15:11 25 MG Hydralazine HCl (HydrALAZINE INJ) 10 mg Q6 PRN IV. 05/07/16 06:30 06/06/16 06:29 05/07/16 07:37 10 MG
[2016-05-07] MEDS: INSULIN GLARGINE SOLOSTAR 100 UNITS/ML 3 ML PEN SC SCH (20:50)
[2016-05-08] VITALS (23 sets, daily range): BP systolic 156–192; BP diastolic 65–99; PULSE 67–79; TEMP 36.4–37.3; O2SAT 92–97
[2016-05-08] MEDS: LISINOPRIL 20 MG TAB PO SCH ×2 (05:14→19:42)
[2016-05-08] MEDS: INSULIN ASPART 100 UNITS/ML 3 ML PEN SC SCH ×4 (07:00→20:56)
[2016-05-08 07:40] LABS: HEMATOCRIT 35.2 % (37-47); MEAN CELL VOLUME 94.4 fL (80-100); MEAN CORPUSCULAR HGB CONC 31.8 g/dl (32-36); MEAN PLATELET VOLUME 10.2 fL (7.4-10.4); PLATELET COUNT 379 K/uL (130-400); RED BLOOD COUNT 3.73 M/uL (4.2-5.4); WHITE BLOOD COUNT 11.71 K/uL (4.8-10.8)
[2016-05-08] MEDS: CALCIUM ACETATE 667MG GELCAP PO SCH ×3 (07:52→16:31)
[2016-05-08] MEDS: CHOLECALCIFEROL 1000 INTER.UNIT TAB PO SCH (07:53)
[2016-05-08] MEDS: MULTIVITAMIN TAB PO SCH (07:54)
[2016-05-08 08:15] LABS: BUN/CREATININE RATIO 5.2 (10-20); CALCIUM 9.1 mg/dl (8.5-10.1); MAGNESIUM 2.7 mg/dl (1.8-2.4); PHOSPHORUS 4.6 mg/dl (2.5-4.9); POTASSIUM 3.9 mmol/L (3.5-5.1); THYROID STIMULATING HORMONE 0.815 uIu/ml (0.300-4.500)
[2016-05-08 08:16] LABS: CREATININE 7.5 mg/dl (0.60-1.20)
[2016-05-08 08:33] LABS: HEPATITIS B AB POS
--- NOTE | 2016-05-08 08:56 | Nephrology Progress Note ---
Nephrology Progress Note Date of Service: May 08, 2016. Subjective feeling well today > no further transient vision loss episodes; eating; tolerating meds so far; worried about hypoglycemia sx (none currently). no further N or PORTILLO like she had yesterday Objective Date Time Temp Pulse Resp B/P Pulse Ox O2 Delivery O2 Flow Rate FiO2 05/08/16 07:49 36.7 75 16 186/89 96 Room Air 05/08/16 04:15 Room Air 05/08/16 03:47 37.1 75 18 192/86 93 Room Air 93 05/08/16 00:15 Room Air 05/08/16 00:13 37.3 79 17 175/71 94 Room Air 05/07/16 20:30 91 Room Air 05/07/16 20:07 37.2 79 16 197/93 91 Room Air 05/07/16 16:00 Room Air 05/07/16 15:36 37.0 80 16 186/99 91 Room Air 05/07/16 12:00 Room Air 05/07/16 11:09 36.8 76 18 191/84 96 Room Air 05/07/16 10:26 74 195/83 Physical Exam: General-aaox3, on RA, maneuvers easily for exam Eyes-no scleral icterus ENT-mmm Neck-supple Lungs-a few end inspiratory L basilar crackles Heart-rrr Abdomen-bs+ s/nt/nd, no jeong Extremities-no c/c/e, L proximal AVF + t/b Neuro-nmae, fluent though at times perseverant speech Current Inpatient Medications Medications (Trade) Dose Ordered Sig/Lauren Route Start Time Stop Time Status Last Admin Dose Admin Acetaminophen (Tylenol Tab) 650 mg Q4H PRN PO 05/06/16 16:00 06/05/16 15:59 05/06/16 19:40 650 MG Ondansetron HCl (Zofran Inj) 4 mg Q6H PRN IV 05/06/16 16:00 06/05/16 15:59 05/07/16 08:28 4 MG Lisinopril (Zestril Tab) 20 mg Q12@0600,1800 PO 05/06/16 18:00 06/05/16 17:59 05/08/16 05:14 20 MG Amlodipine Besylate (Norvasc Tab) 5 mg Q12H PO 05/06/16 22:00 06/05/16 21:59 05/07/16 22:25 5 MG Calcium Acetate (Phoslo Cap) 667 mg TIDM PO 05/06/16 16:45 06/05/16 16:44 05/08/16 07:52 667 MG Insulin Glargine (Lantus Solostar Pen) 8 unit QPM SC 05/06/16 21:00 06/05/16 20:59 05/07/16 20:50 8 UNIT Multivitamins (Multivitamin Tab) 1 tab DAILY PO 05/07/16 09:00 06/06/16 08:59 05/08/16 07:54 1 TAB Cholecalciferol (Vitamin D Tab) 2,000 inter.unit DAILY PO 05/07/16 09:00 06/06/16 08:59 05/08/16 07:53 2,000 INTER.UNIT Insulin Aspart (novoLOG ASPART) SLIDING SCALE If C... ACHS SC 05/06/16 21:00 06/05/16 20:59 Glucose (Glucose 40% Gel) 15-30 GRAMS 15 GRAMS... UD PRN PO 05/06/16 16:45 06/05/16 16:44 Glucose (Glucose Chew Tab) 4-8 Tablets 4 Tabl... UD PRN PO 05/06/16 16:45 06/05/16 16:44 Dextrose (Dextrose 50% 50ML Syringe) 25-50ML OF 50% DW IV FOR... UD PRN IV 05/06/16 16:45 06/05/16 16:44 Glucagon (Glucagon Inj) 1 mg UD PRN SQ 05/06/16 16:45 06/05/16 16:44 Miscellaneous Information (Consult Glycemic Management Pharmacy) 1 ea UD PRN N/A 05/06/16 17:27 06/05/16 17:26 Buspirone HCl (Buspar Tab) 5 mg TID PO 05/06/16 17:00 06/05/16 16:59 05/08/16 07:52 5 MG Hydralazine HCl (Apresoline Tab) 25 mg TID PO 05/07/16 09:00 06/06/16 08:59 05/08/16 07:54 25 MG Hydralazine HCl (HydrALAZINE INJ) 10 mg Q6 PRN IV. 05/07/16 06:30 06/06/16 06:29 05/07/16 07:37 10 MG Last 24 Hours Test 05/07/16 11:15 05/07/16 16:10 05/07/16 20:40 05/08/16 07:05 Bedside Glucose 160 mg/dl 124 mg/dl 139 mg/dl White Blood Count 11.71 K/uL Red Blood Count 3.73 M/uL Hemoglobin 11.2 g/dL Hematocrit 35.2 % Mean Corpuscular Volume 94.4 fL Mean Corpuscular Hemoglobin 30.0 pg Mean Corpuscular Hemoglobin Concent 31.8 g/dl RDW Standard Deviation 58.5 fL RDW Coefficient of Variation 16.9 % Platelet Count 379 K/uL Mean Platelet Volume 10.2 fL Sodium Level 138 mmol/L Potassium Level 3.9 mmol/L Chloride Level 101 mmol/L Carbon Dioxide Level 25 mmol/L Anion Gap 12.0 mmol/L Blood Urea Nitrogen 39 mg/dl Creatinine 7.50 mg/dl Est Creatinine Clear Calc Drug Dose 5.9 ml/min Estimated GFR () 6.2 Estimated GFR (Non- 5.3 BUN/Creatinine Ratio 5.2 Random Glucose 104 mg/dl Calcium Level 9.1 mg/dl Phosphorus Level 4.6 mg/dl Magnesium Level 2.7 mg/dl Thyroid Stimulating Hormone (TSH) 0.815 uIu/ml Hepatitis B Surface Antigen NEG Hepatitis B Surface Antibody POS Assessment & Plan 61 yo female with esrd and hypertensive urgency with systolics in the 200s consistently for the past two months. have been trying to adjust outpt meds but pt was having drug intolerances to the beta blockers-causing temporary blindness. hypertension-goal systolic bp in the 160 to 180, starting to improve. have been trying to slowly bring it down since pt does not tolerate aggressive lowering. currently on lisinopril 20 bid and norvasc 5 bid, hydralazine 25 mg po tid. has not since yesterday am needed prn hydralazine. have asked cardiology for help and guidance in this complicated patient. carotid dopplers are normal. mri/mra is good although incomplete study. no renal artery stenosis. prasanna/renin ratio pending. TSH wnl. psych-pt also with anxiety component to her bp. per psych recs added buspar 5 po tid. perhaps if anxiety levels improve, she may be able to tolerate bp meds better. ESRD-does not tolerate aggressive uf-cramps. so unable to help lower bp with lowering dry weight. for HD today
[2016-05-08] MEDS: AMLODIPINE BESYLATE 5 MG TAB PO SCH ×2 (09:52→20:53)
--- NOTE | 2016-05-08 11:53 | Pharmacy Progress Note ---
Glycemic: Assessment & Plan Date of Service May 08, 2016. Assessment & Plan Assessment * BSG's ranging 104-178 mg/dL over 24 hours. Has received Lantus 8 units but no Novolog. Patient ordered T2DM/AHA diet. * Patient's Lantus is likely covering some prandial needs in addition to basal - risk for hypoglycemia if patient becomes NPO, etc * Will decrease Lantus to ~50% of home dose * Will lower goal range of Novolog below 180 mg/dL so patient may receive some correctional insulin at BSG's 150-180 mg/dL (to start 05/09 as patient already receive Lantus 8 units last night) Plan Starting this PM: * Basal insulin: Decrease Lantus 5 units SC qHS * Correctional Insulin: Novolog Correction per scale ACHS Decrease Goal Range: Low 110 mg/dL - High 150 mg/dL Correction Factor: 50 mg/dL/unit * Prandial insulin: None Pharmacy will continue to monitor patient daily and write orders per [facility] inpatient glycemic control protocol. Thanks. * Please note that the plan above was derived based on current level of insulin resistance and hospital stress. These recommendations are appropriate for inpatient admission only. Plan of care upon discharge will need to be reassessed to avoid potential outpatient hypo/hyperglycemia.
--- NOTE | 2016-05-08 14:33 | CARDIOLOGY PROGRESS NOTE ---
DATE: 05/08/2016 DATE: 05/08/2016. SUBJECTIVE: The patient is seen and examined at the bedside. Blood pressure slowly improving. She denies chest pain or unusual shortness of breath. She is requesting discharge in the a.m. States she may leave against medical advice if not discharged. She offers no other complaints at this time. REVIEW OF SYSTEMS: Pertinent positives noted above, a 4-system review including cardiovascular, pulmonary, gastroenterologic, and neurologic systems otherwise negative. MEDICATIONS: Reviewed via EMR. Please see list for details. PHYSICAL EXAMINATION: VITAL SIGNS: Temperature is 36.6 degrees centigrade, pulse 67 beats per minute and regular, respiratory rate is 16 breaths per minute. Her blood pressure is 185/77, SaO2 94% on room air. GENERAL: NAD, poor dentition, awake, alert and oriented x3. NECK: Supple without JVD or HJR. No carotid bruit. HEART: Regular with a normal S1 and S2, no murmur, rub, or gallop. LUNGS: Clear without rales, rhonchi or wheeze. ABDOMEN: Soft, nontender. No rebound or guarding. EXTREMITIES: Warm and dry without clubbing, cyanosis or edema. FINAL IMPRESSION: 1. Hypertensive urgency -- resolved, blood pressure improved with the addition of hydralazine. The patient tolerating slow reduction in systolic blood pressure. 2. Severe hypertensive heart disease suggesting longstanding uncontrolled hypertension. 3. Diabetes type 2. 4. End-stage renal disease on hemodialysis. 5. History of multiple drug intolerances. PLAN AND RECOMMENDATIONS: The patient has made progress with her blood pressure, although remains uncontrolled. Consider titration of hydralazine to 50 mg 3 times daily tomorrow. Ultimately the patient would benefit from beta gladis therapy with evidence of hypertensive heart disease. Drug of choice for her would be carvedilol starting at low dose 3.125 mg twice daily, however, I am hesitant to start a second medication given her history of intolerance in the past. This can likely be initiated as an outpatient if blood pressure slowly continues to improve.
--- NOTE | 2016-05-08 19:54 | Progress Note ---
Medicine Progress Note Date & Time of Visit: May 08, 2016 at 19:53. Subjective Patient seen and examined. Denies headache, chest pain, SOB. Objective Last 8 Hrs Date Time Temp Pulse Resp B/P Pulse Ox O2 Delivery O2 Flow Rate FiO2 05/08/16 19:38 36.4 78 18 157/84 92 Room Air 05/08/16 18:48 37.0 72 168/65 05/08/16 18:45 70 156/77 05/08/16 18:30 73 168/75 05/08/16 18:15 72 170/91 05/08/16 18:00 70 164/89 05/08/16 17:45 71 160/86 05/08/16 17:30 72 160/90 05/08/16 17:15 70 160/83 05/08/16 17:00 72 161/88 05/08/16 16:45 69 168/89 05/08/16 16:36 36.7 74 20 186/92 96 Room Air 05/08/16 16:30 70 175/95 05/08/16 16:15 72 184/93 05/08/16 16:00 70 174/99 05/08/16 16:00 Room Air 05/08/16 15:50 72 178/92 05/08/16 15:40 36.9 71 186/89 05/08/16 12:00 Room Air Physical Exam: General-awake; alert; NAD; very talkative Eyes-EOMI; no scleral icterus Neck-no stridor; trachea midline Lungs-CTA bilaterally; no wheezes/crackles Heart-RRR; no m/r/g Abdomen-soft; NTND; nBS Extremities-no deformity; no c/c/e Neuro-no gross focal deficits Laboratory Results: Last 24 Hours Test 05/07/16 20:40 05/08/16 07:05 05/08/16 11:06 05/08/16 15:45 Bedside Glucose 139 mg/dl 178 mg/dl 138 mg/dl White Blood Count 11.71 K/uL Red Blood Count 3.73 M/uL Hemoglobin 11.2 g/dL Hematocrit 35.2 % Mean Corpuscular Volume 94.4 fL Mean Corpuscular Hemoglobin 30.0 pg Mean Corpuscular Hemoglobin Concent 31.8 g/dl RDW Standard Deviation 58.5 fL RDW Coefficient of Variation 16.9 % Platelet Count 379 K/uL Mean Platelet Volume 10.2 fL Sodium Level 138 mmol/L Potassium Level 3.9 mmol/L Chloride Level 101 mmol/L Carbon Dioxide Level 25 mmol/L Anion Gap 12.0 mmol/L Blood Urea Nitrogen 39 mg/dl Creatinine 7.50 mg/dl Est Creatinine Clear Calc Drug Dose 5.9 ml/min Estimated GFR () 6.2 Estimated GFR (Non- 5.3 BUN/Creatinine Ratio 5.2 Random Glucose 104 mg/dl Calcium Level 9.1 mg/dl Phosphorus Level 4.6 mg/dl Magnesium Level 2.7 mg/dl Thyroid Stimulating Hormone (TSH) 0.815 uIu/ml Hepatitis B Surface Antigen NEG Hepatitis B Surface Antibody POS Assessment & Plan HYPERTENSIVE URGENCY - MRI/MRA brain unremarkable but incomplete - Cardiology consulted - continue hydralazine, lisinopril, amlodipine - improving ESRD ON HD - HD MWF - Nephrology consulted ANXIETY - Psychiatry consulted - buspirone started - patient declined SSRI DVT PROPHYLAXIS - SCDs Discharge planning: home Consultants: Cardiology Nephrology Psychiatry Procedures: MRI brain No acute intracranial abnormality is identified noting an incomplete examination. The patient declined to finish the study. MRA head Unremarkable MR angiogram of the brain noting a mildly motion degraded examination. Renal ultrasound 1. No evidence for renal artery stenosis. 2. Splenomegaly. 3. Bilateral pleural effusions. 4. Echogenic and atrophic kidneys. 5. Mild fullness within the left renal collecting system without maría hydronephrosis. Carotid artery ultrasound 1. There is no sonographic evidence of hemodynamically significant stenosis in the right or left carotid arterial system. 2. Antegrade flow is shown in the vertebral arteries. Current Inpatient Medications: Current Inpatient Medications Medications (Trade) Dose Ordered Sig/Lauren Route Start Time Stop Time Status Last Admin Dose Admin Acetaminophen (Tylenol Tab) 650 mg Q4H PRN PO 05/06/16 16:00 06/05/16 15:59 05/06/16 19:40 650 MG Ondansetron HCl (Zofran Inj) 4 mg Q6H PRN IV 05/06/16 16:00 06/05/16 15:59 05/07/16 08:28 4 MG Lisinopril (Zestril Tab) 20 mg Q12@0600,1800 PO 05/06/16 18:00 06/05/16 17:59 05/08/16 19:42 20 MG Amlodipine Besylate (Norvasc Tab) 5 mg Q12H PO 05/06/16 22:00 06/05/16 21:59 05/08/16 09:52 5 MG Calcium Acetate (Phoslo Cap) 667 mg TIDM PO 05/06/16 16:45 06/05/16 16:44 05/08/16 11:26 667 MG Multivitamins (Multivitamin Tab) 1 tab DAILY PO 05/07/16 09:00 06/06/16 08:59 05/08/16 07:54 1 TAB Cholecalciferol (Vitamin D Tab) 2,000 inter.unit DAILY PO 05/07/16 09:00 06/06/16 08:59 05/08/16 07:53 2,000 INTER.UNIT Insulin Aspart (novoLOG ASPART) SLIDING SCALE If C... ACHS SC 05/06/16 21:00 05/08/16 23:59 Glucose (Glucose 40% Gel) 15-30 GRAMS 15 GRAMS... UD PRN PO 05/06/16 16:45 06/05/16 16:44 Glucose (Glucose Chew Tab) 4-8 Tablets 4 Tabl... UD PRN PO 05/06/16 16:45 06/05/16 16:44 Dextrose (Dextrose 50% 50ML Syringe) 25-50ML OF 50% DW IV FOR... UD PRN IV 05/06/16 16:45 06/05/16 16:44 Glucagon (Glucagon Inj) 1 mg UD PRN SQ 05/06/16 16:45 06/05/16 16:44 Miscellaneous Information (Consult Glycemic Management Pharmacy) 1 ea UD PRN N/A 05/06/16 17:27 06/05/16 17:26 Buspirone HCl (Buspar Tab) 5 mg TID PO 05/06/16 17:00 06/05/16 16:59 05/08/16 13:59 5 MG Hydralazine HCl (Apresoline Tab) 25 mg TID PO 05/07/16 09:00 06/06/16 08:59 05/08/16 14:00 25 MG Hydralazine HCl (HydrALAZINE INJ) 10 mg Q6 PRN IV. 05/07/16 06:30 06/06/16 06:29 05/07/16 07:37 10 MG Insulin Glargine (Lantus Solostar Pen) HOLD FOR BSG < 110 MG/DL *... QPM HI 05/08/16 21:00 06/07/16 20:59 Insulin Aspart (novoLOG ASPART) SLIDING SCALE If C... ACHS HI 05/09/16 07:00 06/08/16 06:59
[2016-05-08] MEDS: INSULIN GLARGINE SOLOSTAR 100 UNITS/ML 3 ML PEN SC SCH (20:55)
[2016-05-09] VITALS (12 sets, daily range): BP systolic 162–202; BP diastolic 72–95; PULSE 76–85; TEMP 36.4–37.1; O2SAT 95–97
[2016-05-09] MEDS: ACETAMINOPHEN 325 MG TAB PO PRN (04:51)
[2016-05-09] MEDS: LISINOPRIL 20 MG TAB PO SCH ×2 (04:52→18:31)
[2016-05-09 06:46] LABS: HEMATOCRIT 38.8 % (37-47); MEAN CELL VOLUME 94.4 fL (80-100); MEAN CORPUSCULAR HEMOGLOBIN 30.9 pg (25-34); MEAN CORPUSCULAR HGB CONC 32.7 g/dl (32-36); MEAN PLATELET VOLUME 10.2 fL (7.4-10.4); PLATELET COUNT 426 K/uL (130-400); RED BLOOD COUNT 4.11 M/uL (4.2-5.4); WHITE BLOOD COUNT 11.75 K/uL (4.8-10.8)
[2016-05-09] MEDS: INSULIN ASPART 100 UNITS/ML 3 ML PEN SC SCH ×4 (07:00→20:42)
[2016-05-09] MEDS: MULTIVITAMIN TAB PO SCH (07:19)
[2016-05-09] MEDS: CALCIUM ACETATE 667MG GELCAP PO SCH ×3 (07:19→16:19)
[2016-05-09] MEDS: CHOLECALCIFEROL 1000 INTER.UNIT TAB PO SCH (07:19)
[2016-05-09 07:22] LABS: BUN/CREATININE RATIO 4.9 (10-20); CALCIUM 9.3 mg/dl (8.5-10.1); CREATININE 5.9 mg/dl (0.60-1.20); MAGNESIUM 2.6 mg/dl (1.8-2.4); PHOSPHORUS 3.9 mg/dl (2.5-4.9); POTASSIUM 4.2 mmol/L (3.5-5.1)
[2016-05-09] MEDS: AMLODIPINE BESYLATE 5 MG TAB PO SCH ×2 (10:30→21:23)
--- NOTE | 2016-05-09 15:26 | PROGRESS NOTE ---
DATE: 05/09/2016 CARDIOLOGY FOLLOWUP SUBJECTIVE: The patient is seen and examined at the bedside. Blood pressure unchanged. Denies any side effects associated with medication changes. Denies chest pain or unusual shortness of breath. Offers no complaints. is present at bedside. REVIEW OF SYSTEMS: Pertinent positives noted above and a 4-system review including cardiovascular, pulmonary, gastroenterologic, and endocrinologic systems otherwise negative. MEDICATIONS: Reviewed via EMR. Please see list for details. LABORATORY DATA: White blood cell count 11.75, hemoglobin is 12.7, platelet count is 426. Sodium 139, potassium 4.2, CO2 27, BUN is 30, creatinine is 5.90. PHYSICAL EXAMINATION: VITAL SIGNS: Temperature 36.8 degrees centigrade, pulse 78 beats per minute and regular, respiratory rate 16 breaths per minute, blood pressure 172/79, SaO2 95% on room air. GENERAL: NAD, awake, alert and oriented x3. HEENT: Her mucous membranes are moist. There is no scleral icterus. The conjunctivae are pink. NECK: Supple without JVD or HJR. No carotid bruit. HEART: Regular, normal S1 and S2. No murmur, rub or gallop. LUNGS: Clear without rales, rhonchi or wheeze. ABDOMEN: Soft, nontender. No rebound or guarding. EXTREMITIES: Warm and dry. No clubbing, cyanosis or edema. NEUROLOGIC: Demonstrates no focal deficit. FINAL IMPRESSION: 1. Hypertensive urgency -- resolved. Blood pressure is improving with hydralazine; however remains markedly elevated. 2. Severe hypertensive heart disease without decompensated heart failure. 3. Diabetes type 2. 4. End-stage renal disease, on dialysis. PLAN AND RECOMMENDATIONS: I had a long discussion with the patient regarding the results of her echocardiogram and her uncontrolled hypertension. I recommend low dose carvedilol 3.125 mg twice daily in light of her hypertensive heart disease. She is agreeable. She will receive her first dose this evening at 4:00 p.m. Other medications will be continued as previously ordered. Continue telemetry monitoring. MTDD
[2016-05-09] MEDS: CARVEDILOL 3.125 MG TAB PO SCH ×2 (16:18→20:35)
[2016-05-09] MEDS: INSULIN GLARGINE SOLOSTAR 100 UNITS/ML 3 ML PEN SC SCH (20:42)
--- NOTE | 2016-05-09 21:30 | Progress Note ---
Medicine Progress Note Date & Time of Visit: May 09, 2016 at 21:27. Subjective Patient seen and examined. Feeling overall better today. Anticipating discharge. Tolerating antihypertensive regimen. Objective Last 8 Hrs Date Time Temp Pulse Resp B/P Pulse Ox O2 Delivery O2 Flow Rate FiO2 05/09/16 20:01 Room Air 05/09/16 19:15 36.8 85 18 185/72 95 Room Air 05/09/16 16:01 Room Air 05/09/16 16:01 36.4 80 18 162/80 96 Room Air Physical Exam: General-awake; alert; NAD; very talkative Eyes-EOMI; no scleral icterus Neck-no stridor; trachea midline Lungs-CTA bilaterally; no wheezes/crackles Heart-RRR; no m/r/g Abdomen-soft; NTND; nBS Extremities-no deformity; no c/c/e Neuro-no gross focal deficits Laboratory Results: Last 24 Hours Test 05/09/16 06:22 05/09/16 07:03 05/09/16 11:13 05/09/16 16:05 White Blood Count 11.75 K/uL Red Blood Count 4.11 M/uL Hemoglobin 12.7 g/dL Hematocrit 38.8 % Mean Corpuscular Volume 94.4 fL Mean Corpuscular Hemoglobin 30.9 pg Mean Corpuscular Hemoglobin Concent 32.7 g/dl RDW Standard Deviation 57.7 fL RDW Coefficient of Variation 17.0 % Platelet Count 426 K/uL Mean Platelet Volume 10.2 fL Sodium Level 139 mmol/L Potassium Level 4.2 mmol/L Chloride Level 101 mmol/L Carbon Dioxide Level 27 mmol/L Anion Gap 11.0 mmol/L Blood Urea Nitrogen 30 mg/dl Creatinine 5.90 mg/dl Est Creatinine Clear Calc Drug Dose 7.5 ml/min Estimated GFR () 8.2 Estimated GFR (Non- 7.1 BUN/Creatinine Ratio 4.9 Random Glucose 103 mg/dl Calcium Level 9.3 mg/dl Phosphorus Level 3.9 mg/dl Magnesium Level 2.6 mg/dl Bedside Glucose 109 mg/dl 176 mg/dl 147 mg/dl Assessment & Plan HYPERTENSIVE URGENCY - MRI/MRA brain unremarkable but incomplete - Cardiology consulted - continue hydralazine, lisinopril, amlodipine, carvedilol - improving ESRD ON HD - HD MWF - Nephrology consulted ANXIETY - Psychiatry consulted - buspirone started - patient declined SSRI TYPE 2 DIABETES - glycemic pharmacy consulted - continue insulin DVT PROPHYLAXIS - SCDs Discharge planning: home Consultants: Cardiology Nephrology Psychiatry Procedures: MRI brain No acute intracranial abnormality is identified noting an incomplete examination. The patient declined to finish the study. MRA head Unremarkable MR angiogram of the brain noting a mildly motion degraded examination. Renal ultrasound 1. No evidence for renal artery stenosis. 2. Splenomegaly. 3. Bilateral pleural effusions. 4. Echogenic and atrophic kidneys. 5. Mild fullness within the left renal collecting system without maría hydronephrosis. Carotid artery ultrasound 1. There is no sonographic evidence of hemodynamically significant stenosis in the right or left carotid arterial system. 2. Antegrade flow is shown in the vertebral arteries. Current Inpatient Medications: Current Inpatient Medications Medications (Trade) Dose Ordered Sig/Lauren Route Start Time Stop Time Status Last Admin Dose Admin Acetaminophen (Tylenol Tab) 650 mg Q4H PRN PO 05/06/16 16:00 06/05/16 15:59 05/09/16 04:51 650 MG Ondansetron HCl (Zofran Inj) 4 mg Q6H PRN IV 05/06/16 16:00 06/05/16 15:59 05/07/16 08:28 4 MG Lisinopril (Zestril Tab) 20 mg Q12@0600,1800 PO 05/06/16 18:00 06/05/16 17:59 05/09/16 18:31 20 MG Amlodipine Besylate (Norvasc Tab) 5 mg Q12H PO 05/06/16 22:00 06/05/16 21:59 05/09/16 21:23 5 MG Calcium Acetate (Phoslo Cap) 667 mg TIDM PO 05/06/16 16:45 06/05/16 16:44 05/09/16 16:19 667 MG Multivitamins (Multivitamin Tab) 1 tab DAILY PO 05/07/16 09:00 06/06/16 08:59 05/09/16 07:19 1 TAB Cholecalciferol (Vitamin D Tab) 2,000 inter.unit DAILY PO 05/07/16 09:00 06/06/16 08:59 05/09/16 07:19 2,000 INTER.UNIT Glucose (Glucose 40% Gel) 15-30 GRAMS 15 GRAMS... UD PRN PO 05/06/16 16:45 06/05/16 16:44 Glucose (Glucose Chew Tab) 4-8 Tablets 4 Tabl... UD PRN PO 05/06/16 16:45 06/05/16 16:44 Dextrose (Dextrose 50% 50ML Syringe) 25-50ML OF 50% DW IV FOR... UD PRN IV 05/06/16 16:45 06/05/16 16:44 Glucagon (Glucagon Inj) 1 mg UD PRN SQ 05/06/16 16:45 06/05/16 16:44 Miscellaneous Information (Consult Glycemic Management Pharmacy) 1 ea UD PRN N/A 05/06/16 17:27 06/05/16 17:26 Buspirone HCl (Buspar Tab) 5 mg TID PO 05/06/16 17:00 06/05/16 16:59 05/09/16 20:35 5 MG Hydralazine HCl (Apresoline Tab) 25 mg TID PO 05/07/16 09:00 06/06/16 08:59 05/09/16 20:36 25 MG Hydralazine HCl (HydrALAZINE INJ) 10 mg Q6 PRN IV. 05/07/16 06:30 06/06/16 06:29 05/07/16 07:37 10 MG Insulin Glargine (Lantus Solostar Pen) HOLD FOR BSG < 110 MG/DL *... QPM SC 05/08/16 21:00 06/07/16 20:59 05/09/16 20:42 5 UNIT Insulin Aspart (novoLOG ASPART) SLIDING SCALE If C... ACHS SC 05/09/16 07:00 06/08/16 06:59 05/09/16 20:42 2 UNITS Carvedilol (Coreg Tab) 3.125 mg BID PO 05/09/16 16:00 06/08/16 15:59 05/09/16 20:35 3.125 MG
[2016-05-09] MEDS: HydrALAZINE HCL 20 MG/ML VIAL IV. PRN (23:04)
[2016-05-10] VITALS (23 sets, daily range): BP systolic 143–209; BP diastolic 78–102; PULSE 76–92; TEMP 36.5–36.9; O2SAT 97
[2016-05-10] MEDS: LISINOPRIL 20 MG TAB PO SCH (05:40)
[2016-05-10 06:40] LABS: MEAN CELL VOLUME 94.1 fL (80-100); MEAN CORPUSCULAR HGB CONC 31.8 g/dl (32-36); MEAN PLATELET VOLUME 9.7 fL (7.4-10.4); PLATELET COUNT 423 K/uL (130-400); RED BLOOD COUNT 4.04 M/uL (4.2-5.4); WHITE BLOOD COUNT 13.05 K/uL (4.8-10.8)
[2016-05-10] MEDS: INSULIN ASPART 100 UNITS/ML 3 ML PEN SC SCH ×2 (07:00→13:43)
[2016-05-10 07:36] LABS: BUN/CREATININE RATIO 7.1 (10-20); CALCIUM 9.3 mg/dl (8.5-10.1); CREATININE 8.2 mg/dl (0.60-1.20); MAGNESIUM 2.8 mg/dl (1.8-2.4); PHOSPHORUS 4.8 mg/dl (2.5-4.9); POTASSIUM 4.6 mmol/L (3.5-5.1)
[2016-05-10] MEDS: CALCIUM ACETATE 667MG GELCAP PO SCH ×2 (07:54→13:45)
[2016-05-10] MEDS: MULTIVITAMIN TAB PO SCH (07:55)
[2016-05-10] MEDS: CARVEDILOL 3.125 MG TAB PO SCH (07:55)
[2016-05-10] MEDS: CHOLECALCIFEROL 1000 INTER.UNIT TAB PO SCH (07:56)
--- NOTE | 2016-05-10 10:39 | Dialysis Progress Note ---
Nephrology Dialysis Note Date of Service: May 10, 2016. Subjective 61 yo female with esrd and hypertensive urgency with systolics in the 200s consistently for the past two months. has had several drug intolerances. pt tolerating the new bp medications. have added buspar, coreg, and hydralazine and pt is feeling much better. tolerating dialysis well. Objective Date Time Temp Pulse Resp B/P Pulse Ox O2 Delivery O2 Flow Rate FiO2 05/10/16 10:00 81 175/86 05/10/16 08:00 Room Air 05/10/16 07:24 36.5 84 19 190/89 97 Room Air 05/10/16 04:00 Room Air 05/10/16 03:00 36.9 92 20 185/86 97 Room Air 05/10/16 00:27 161/93 05/10/16 00:01 97 Room Air 05/09/16 22:55 36.7 18 198/77 97 Room Air 202/92 05/09/16 20:01 Room Air 05/09/16 19:15 36.8 85 18 185/72 95 Room Air 05/09/16 16:01 Room Air 05/09/16 16:01 36.4 80 18 162/80 96 Room Air 05/09/16 13:04 97 Room Air 05/09/16 12:30 97 Room Air 05/09/16 12:00 97 Room Air Physical Exam: General-aaox3 Eyes-no scleral icterus ENT-mmm Neck-supple Lungs-clear Heart-regular Abdomen-bs+ s/nt/nd Extremities-no c/c/e Neuro-nonfocal Current Inpatient Medications Medications (Trade) Dose Ordered Sig/Lauren Route Start Time Stop Time Status Last Admin Dose Admin Acetaminophen (Tylenol Tab) 650 mg Q4H PRN PO 05/06/16 16:00 06/05/16 15:59 05/09/16 04:51 650 MG Ondansetron HCl (Zofran Inj) 4 mg Q6H PRN IV 05/06/16 16:00 06/05/16 15:59 05/07/16 08:28 4 MG Lisinopril (Zestril Tab) 20 mg Q12@0600,1800 PO 05/06/16 18:00 06/05/16 17:59 05/10/16 05:40 20 MG Amlodipine Besylate (Norvasc Tab) 5 mg Q12H PO 05/06/16 22:00 06/05/16 21:59 05/09/16 21:23 5 MG Calcium Acetate (Phoslo Cap) 667 mg TIDM PO 05/06/16 16:45 06/05/16 16:44 05/10/16 07:54 667 MG Multivitamins (Multivitamin Tab) 1 tab DAILY PO 05/07/16 09:00 06/06/16 08:59 05/10/16 07:55 1 TAB Cholecalciferol (Vitamin D Tab) 2,000 inter.unit DAILY PO 05/07/16 09:00 06/06/16 08:59 05/10/16 07:56 2,000 INTER.UNIT Glucose (Glucose 40% Gel) 15-30 GRAMS 15 GRAMS... UD PRN PO 05/06/16 16:45 06/05/16 16:44 Glucose (Glucose Chew Tab) 4-8 Tablets 4 Tabl... UD PRN PO 05/06/16 16:45 06/05/16 16:44 Dextrose (Dextrose 50% 50ML Syringe) 25-50ML OF 50% DW IV FOR... UD PRN IV 05/06/16 16:45 06/05/16 16:44 Glucagon (Glucagon Inj) 1 mg UD PRN SQ 05/06/16 16:45 06/05/16 16:44 Miscellaneous Information (Consult Glycemic Management Pharmacy) 1 ea UD PRN N/A 05/06/16 17:27 06/05/16 17:26 Buspirone HCl (Buspar Tab) 5 mg TID PO 05/06/16 17:00 06/05/16 16:59 05/10/16 07:54 5 MG Hydralazine HCl (Apresoline Tab) 25 mg TID PO 05/07/16 09:00 06/06/16 08:59 05/10/16 07:54 25 MG Hydralazine HCl (HydrALAZINE INJ) 10 mg Q6 PRN IV. 05/07/16 06:30 06/06/16 06:29 05/09/16 23:04 10 MG Insulin Glargine (Lantus Solostar Pen) HOLD FOR BSG < 110 MG/DL *... QPM SC 05/08/16 21:00 2/24/17 20:59 05/09/16 20:42 5 UNIT Insulin Aspart (novoLOG ASPART) SLIDING SCALE If C... ACHS TX 05/09/16 07:00 06/08/16 06:59 05/09/16 20:42 2 UNITS Carvedilol (Coreg Tab) 3.125 mg BID PO 05/09/16 16:00 06/08/16 15:59 05/10/16 07:55 3.125 MG Last 24 Hours Test 05/09/16 11:13 05/09/16 16:05 05/09/16 20:02 05/10/16 06:16 Bedside Glucose 176 mg/dl 147 mg/dl 246 mg/dl White Blood Count 13.05 K/uL Red Blood Count 4.04 M/uL Hemoglobin 12.1 g/dL Hematocrit 38.0 % Mean Corpuscular Volume 94.1 fL Mean Corpuscular Hemoglobin 30.0 pg Mean Corpuscular Hemoglobin Concent 31.8 g/dl RDW Standard Deviation 57.4 fL RDW Coefficient of Variation 16.9 % Platelet Count 423 K/uL Mean Platelet Volume 9.7 fL Sodium Level 138 mmol/L Potassium Level 4.6 mmol/L Chloride Level 101 mmol/L Carbon Dioxide Level 24 mmol/L Anion Gap 13.0 mmol/L Blood Urea Nitrogen 59 mg/dl Creatinine 8.20 mg/dl Est Creatinine Clear Calc Drug Dose 5.4 ml/min Estimated GFR () 5.5 Estimated GFR (Non- 4.8 BUN/Creatinine Ratio 7.1 Random Glucose 156 mg/dl Calcium Level 9.3 mg/dl Phosphorus Level 4.8 mg/dl Magnesium Level 2.8 mg/dl Test 05/10/16 06:20 Bedside Glucose 144 mg/dl Assessment & Plan ESRD-seen on dialysis today. only has one liter uf and starts to cramp when we are more aggressive with fluid removal. goal bp is in the 160 to 180. has added buspar to help with anxiety and bp. now on hydralazine and coreg as well in addition to the lisinopril and norvasc. doing bid and tid medications to slowly bring down bp. DO NOT HOLD bp meds prior to dialysis. no aggressive uf so no need to hold the meds prior to dialysis. otherwise, bp will be in the 200s. encourage to continue the medications the same way she is taking them in the hospital and to not hold or change any of the medications if at all possible.
[2016-05-10] MEDS ORDERED: LSN20 PO (11:44)
[2016-05-10] MEDS ORDERED: BSP5 PO (11:44)
[2016-05-10] MEDS ORDERED: NRV5 PO (11:44)
[2016-05-10] MEDS ORDERED: APR25 PO (11:44)
[2016-05-10] MEDS ORDERED: CRG3125 PO (11:44)
--- NOTE | 2016-05-10 11:49 | Discharge Instructions ---
Discharge Instructions Admission Reason for Admission: Hypertension,Esrd Discharge Discharge Diagnosis / Problem: Hypertension Discharge Goals Goal(s): Improve disease control Activity Recommendations Activity Limitations: resume your previous activity . Instructions / Follow-Up Instructions / Follow-Up Please follow up with Parris Ortiz on May 14 at 4:15pm. Please take Amlodipine twice a day, at 10:00am and 10:00pm. Please take Hydralazine three times a day at 8:00am, 2:00pm and 9:00pm. Please take Carvedilol twice a day at 9:00am and 9:00pm. Please take Lisinopril twice a day at 6:00am and 6:00pm. You can take Buspirone at the same times that you take Hydralazine. Please take your medications every day as prescribed and do not miss doses, even on your dialysis days. Current Hospital Diet Patient's current hospital diet: AHA Diet (Heart Healthy), Diabetes Type 2 Diet Discharge Diet Recommended Diet: Low Sodium Diet (2gm Na), Diabetes Type 2 Diet, Renal Diet Pending Studies Studies pending at discharge: no Laboratory Results Hemoglobin A1c Test 05/07/16 06:44 Range/Units Estimated Average Glucose 85 mg/dl Hemoglobin A1c 4.6 4.5-5.6 % Medical Emergencies . Who to Call and When: Medical Emergencies: If at any time you feel your situation is an emergency, please call 911 immediately. . Non-Emergent Contact Non-Emergency issues call your: Primary Care Provider, [facility] [employer] . . "Provider Documentation" section prepared by Terri Le. VTE Core Measure Inpt VTE Proph given/why not?: SCD's
[2016-05-10] MEDS: AMLODIPINE BESYLATE 5 MG TAB PO SCH (13:45)
[2016-05-10] MEDS: HydrALAZINE HCL 20 MG/ML VIAL IV. PRN (14:33)
--- NOTE | 2016-05-10 19:10 | Discharge Summary ---
Discharge Summary Admission Date: May 06, 2016 at 15:26 Discharge Date: May 10, 2016 Discharge Disposition: Home Principal Diagnosis: Hypertension Procedures: MRI brain No acute intracranial abnormality is identified noting an incomplete examination. The patient declined to finish the study. MRA head Unremarkable MR angiogram of the brain noting a mildly motion degraded examination. Renal ultrasound 1. No evidence for renal artery stenosis. 2. Splenomegaly. 3. Bilateral pleural effusions. 4. Echogenic and atrophic kidneys. 5. Mild fullness within the left renal collecting system without maría hydronephrosis. Carotid artery ultrasound 1. There is no sonographic evidence of hemodynamically significant stenosis in the right or left carotid arterial system. 2. Antegrade flow is shown in the vertebral arteries. TTE * Left ventricular systolic function is normal. * Ejection Fraction = 60-65%. * There is severe concentric left ventricular hypertrophy. * The left atrium is mildly dilated. * Diastolic dysfunction, Grade II (pseudonormalization pattern). * There is mild tricuspid regurgitation. * Estimated systolic PAP is 54mmHg. * There is mild mitral regurgitation. * Small pericardial effusion. * There are no echocardiographic indications of cardiac tamponade. Consultations: Cardiology Nephrology Psychiatry Medication Reconciliation New Medications: Buspirone HCl (Buspirone HCl) 5 Mg Tab 5 MG PO TID for 30 Days, #90 TAB Carvedilol (Carvedilol) 3.125 Mg Tab 3.125 MG PO Q12 for 30 Days, #60 TAB Take at 9:00am and 9:00pm. Hydralazine Hcl (Apresoline) 25 Mg Tab 25 MG PO TID for 30 Days, #90 TAB Take at 8:00am, 2:00pm and 9:00pm. Lisinopril (Lisinopril) 20 Mg Tab 20 MG PO Q12@0600,1800 for 30 Days, #60 TAB Take at 6:00am and 6:00pm. Changed Medications: Amlodipine Besylate (Amlodipine Besylate) 5 Mg Tab 5 MG PO Q12 for 30 Days, #60 TAB (Changed from: DAILY) Take at 10am and 10pm. Continued Medications: Calcium Acetate (Phoslo 667 Mg) 667 Mg Cap 1 CAP PO WM, CAP Cholecalciferol (Vitamin D3) 2,000 Unit Tab 1 TAB PO DAILY for 30 Days, #30 TAB 5 Refills Insulin Glargine (Lantus) 100 Unit/Ml Inj 11 UNITS SC QPM, VIAL Insulin Human Regular (Humulin R) 1 Ea Inj TID via sliding scale Multiple Vitamin (Multivitamin) 1 Tab Tab 1 TAB PO DAILY for 90 Days, #90 TAB 3 Refills Admission Information HPI (per Admitting provider): 61 year old female referred for direct admission by Dr. Meade for uncontrolled hypertension. She has ESRD and is on HD. Per Dr. Meade, patient's blood pressures have been running in the 200s systolically. Patient reports she has had high blood pressure for several years. Last year however she was taken off Lisinopril that she had been on several years. BPs started to increase over the past couple of months. Patient has been trialed on lisinopril, atenolol, and amlodipine. She reports that since taking these medicines she has felt poorly and her vision has been blurry at times. She reports the vision is worst in the morning. She also has been having right sided headaches. She denies lightheadedness, dizziness, diaphoresis, or syncopal events. No chest pain or shortness of breath. She denies abdominal pain. She had vomiting a couple of weeks ago which she attributes to a sinus infection she had. She also reports intermittent episodes of diarrhea. She denies fever and chills. Patient continues to make urine; she denies dysuria. At the time of my exam, patient is sitting on the side of the bed, no acute distress. BP is 213/113. Physical Exam (per Admitting): General Appearance: no apparent distress Head: normocephalic Eyes: normal inspection, PERRL, EOMI ENT: hearing grossly normal Neck: supple, no JVD Respiratory/Chest: lungs clear, normal breath sounds, no respiratory distress, + pertinent finding (dialysis catheter in place to left chest) Cardiovascular: regular rate, rhythm, no edema, normal peripheral pulses Abdomen/GI: normal bowel sounds, non tender, soft Extremities/Musculoskelatal: normal inspection, no calf tenderness Neurologic/Psych: no motor/sensory deficits, alert, normal mood/affect, oriented x 3 Skin: normal color, warm/dry Hospital Course Patient was admitted with hypertensive urgency. MRI/MRA brain unremarkable but incomplete. Cardiology was consulted. Antihypertensives were titrated to a final regimen of hydralazine, carvedilol, lisinopril and amlodipine. Blood pressure improved to the 180-190's systolic prior to discharge. Renal was consulted to continue HD while inpatient. Patient was started on buspirone for anxiety. Psychiatry was consulted and patient declined any further medications. Patient deemed stable for discharge with Family Medicine follow up. PE on discharge: General- awake; alert; NAD Eyes- EOMI; no scleral icterus Neck- no stridor; trachea midline Lungs- CTA bilaterally; no wheezes/crackles Heart- RRR; no m/r/g Abdomen- soft; NTND; nBS Back- no gross abnormalities Extremities- no c/c/e; no deformity Neuro- no gross focal deficits Skin- no appreciable rash . Total time spent on discharge = This includes examination of the patient, discharge planning, medication reconciliation, and communication with other providers. Discharge Instructions Discharge Instructions Admission Reason for Admission: Hypertension,Esrd Discharge Discharge Diagnosis / Problem: Hypertension Discharge Goals Goal(s): Improve disease control Activity Recommendations Activity Limitations: resume your previous activity . Instructions / Follow-Up Instructions / Follow-Up Please follow up with Parris Ortiz on May 14 at 4:15pm. Please take Amlodipine twice a day, at 10:00am and 10:00pm. Please take Hydralazine three times a day at 8:00am, 2:00pm and 9:00pm. Please take Carvedilol twice a day at 9:00am and 9:00pm. Please take Lisinopril twice a day at 6:00am and 6:00pm. You can take Buspirone at the same times that you take Hydralazine. Please take your medications every day as prescribed and do not miss doses, even on your dialysis days. Current Hospital Diet Patient's current hospital diet: AHA Diet (Heart Healthy), Diabetes Type 2 Diet Discharge Diet Recommended Diet: Low Sodium Diet (2gm Na), Diabetes Type 2 Diet, Renal Diet Pending Studies Studies pending at discharge: no Laboratory Results Hemoglobin A1c Test 05/07/16 06:44 Range/Units Estimated Average Glucose 85 mg/dl Hemoglobin A1c 4.6 4.5-5.6 % Medical Emergencies . Who to Call and When: Medical Emergencies: If at any time you feel your situation is an emergency, please call 911 immediately. . Non-Emergent Contact Non-Emergency issues call your: Primary Care Provider, Non Destructive Evaluation Specialist . . "Provider Documentation" section prepared by Terri Le. VTE Core Measure Inpt VTE Proph given/why not?: SCD's Additional Copies To Parris Dyson PA-C
== END 2016-05-10 15:31 | disposition home or self-care (01) | DRG 304 ==
LOC: C.2T 15:26
PROVIDERS: ADMIT Internal Medicine; ATTEND Internal Medicine
DX: I16.0 Hypertensive urgency (principal); N18.6 End stage renal disease; I13.11 Hypertensive heart and chronic kidney disease without heart failure, with stage 5 chronic kidney disease, or end stage renal disease; F41.9 Anxiety disorder, unspecified; E11.22 Type 2 diabetes mellitus with diabetic chronic kidney disease; Z91.128 Patient's intentional underdosing of medication regimen for other reason; Z99.2 Dependence on renal dialysis; Z79.4 Long term (current) use of insulin; Z79.899 Other long term (current) drug therapy; Z85.89 Personal history of malignant neoplasm of other organs and systems; Z81.1 Family history of alcohol abuse and dependence; Z81.8 Family history of other mental and behavioral disorders